=== PATIENT | male | born 1965 | race Caucasian/White ===

== ENCOUNTER 2016-08-14 12:21 | Emergency (ER) | payer MEDICAID ==
[~2016-08-14] VITALS: Ht 160 cm; Wt 56.3 kg
[~2016-08-14 12:21] MED LIST: ALBU90AE INH; CARV3.122 PO; CIPR500T3 PO; DIAZ5TAB4 PO; FLUT1BLS INH; IBUP-1222 PO; METR500T PO; MOXI400T30 PO; SIMV20TA3 PO; TIOT18CA INH; TRAM50TA2 PO; WARF5TAB PO
[2016-08-14] MEDS ORDERED: METOCLOPRAMIDE 5 MG/ML, 2ML IVPush ONE (13:30)
[2016-08-14] MEDS ORDERED: DIPHENHYDRAMINE 50 MG/ML, 1ML IVPush ONE (13:30)
[2016-08-14] MEDS ORDERED: KETOROLAC 30 MG/1 ML IVPush ONE ×2 (13:30→14:30)
[2016-08-14] MEDS ORDERED: SODIUM CHLORIDE 0.9% 1,000ML IVBOLUS ONE (13:30)
[2016-08-14] MEDS ORDERED: SODIUM CHLORIDE FLUSH 10ML SYR IVF ONE (13:30)
[2016-08-14] MEDS ORDERED: KETOROLAC 30 MG/1 ML ONE (14:06)
[2016-08-14] MEDS ORDERED: METOCLOPRAMIDE 5 MG/ML, 2ML ONE (14:06)
[2016-08-14] MEDS ORDERED: DIPHENHYDRAMINE 50 MG/ML, 1ML ONE (14:06)
[2016-08-14] MEDS ORDERED: SODIUM CHLORIDE 0.9% 1,000 ML IV ONE (14:24)
[2016-08-14] MEDS ORDERED: LORazepam 2 MG/ML, 1ML IVPush ONE (14:30)
[2016-08-14 16:23] VITALS: BP 121/80
== END 2016-08-14 16:21 | disposition home or self-care (01) ==
LOC: ED 16:14
DX: G43.909 Migraine, unspecified, not intractable, without status migrainosus (principal); I10 Essential (primary) hypertension; M54.41 Lumbago with sciatica, right side; I25.10 Atherosclerotic heart disease of native coronary artery without angina pectoris; J44.9 Chronic obstructive pulmonary disease, unspecified
CPT/HCPCS: 96361; 96374; 96375; 99284; J1200; J1885; J2765; J7030

== ENCOUNTER 2016-09-15 05:05 | Emergency (ER) | payer MEDICAID ==
[~2016-09-15] VITALS: Ht 160 cm; Wt 58.0 kg
[2016-09-15] MEDS ORDERED: DIPHENHYDRAMINE 50 MG/ML, 1ML ONE (06:22)
[2016-09-15] MEDS ORDERED: PROCHLORPERAZINE 5 MG/ML, 2ML ONE (06:23)
[2016-09-15] MEDS ORDERED: PROCHLORPERAZINE 5 MG/ML, 2ML IVPush ONE (06:30)
[2016-09-15] MEDS ORDERED: DIPHENHYDRAMINE 50 MG/ML, 1ML IVPush ONE (06:30)
[2016-09-15] MEDS ORDERED: SODIUM CHLORIDE FLUSH 10ML SYR IVF ONE (06:30)
[2016-09-15] MEDS ORDERED: SODIUM CHLORIDE 0.9% 1,000ML IVBOLUS ONE (06:30)
[2016-09-15] MEDS ORDERED: ASPI-496 PO (06:35)
[2016-09-15 06:47] LABS: BLOOD UREA NITROGEN 20 mg/dL (7-18)
[2016-09-15 07:19] LABS: DIFF TOTAL CELLS COUNTED 100 CELL DIFF
[2016-09-15 08:12] VITALS: BP 112/71
[2016-09-15 09:21] LABS: VERIFY COUNTS? YES
== END 2016-09-15 08:17 | disposition home or self-care (01) ==
LOC: ED 08:04
DX: R51 Headache (principal); G89.29 Other chronic pain; I21.3 ST elevation (STEMI) myocardial infarction of unspecified site; G43.909 Migraine, unspecified, not intractable, without status migrainosus; J44.9 Chronic obstructive pulmonary disease, unspecified; I25.10 Atherosclerotic heart disease of native coronary artery without angina pectoris; F12.10 Cannabis abuse, uncomplicated; I12.9 Hypertensive chronic kidney disease with stage 1 through stage 4 chronic kidney disease, or unspecified chronic kidney disease; N18.9 Chronic kidney disease, unspecified; M19.90 Unspecified osteoarthritis, unspecified site; Z79.01 Long term (current) use of anticoagulants; Z87.01 Personal history of pneumonia (recurrent); Z86.718 Personal history of other venous thrombosis and embolism
CPT/HCPCS: 36415; 80048; 82040; 85025; 96361; 96374; 96375; 99285; J0780; J1200; J7030

== ENCOUNTER 2016-09-15 13:45 | Emergency (ER) | payer MEDICAID ==
[~2016-09-15] VITALS: Ht 160 cm; Wt 56.2 kg
[~2016-09-15 13:45] MED LIST changes: +ASPI-496 PO
[2016-09-15] MEDS ORDERED: SODIUM CHLORIDE 0.9% 1,000ML IVBOLUS ONE (14:30)
[2016-09-15] MEDS ORDERED: SODIUM CHLORIDE FLUSH 10ML SYR IVF ONE (14:30)
[2016-09-15 15:17] LABS: BLOOD UREA NITROGEN 15 mg/dL (7-18)
[2016-09-15 15:22] LABS: IS PT STATUS REG ER OR PRE ER? YES
[2016-09-15 17:13] LABS: IS PT STATUS REG ER OR PRE ER? YES
[2016-09-15 18:17] VITALS: BP 138/96
== END 2016-09-15 18:19 | disposition home or self-care (01) ==
LOC: ED 15:27
DX: R07.89 Other chest pain (principal); M54.30 Sciatica, unspecified side; I10 Essential (primary) hypertension; J44.9 Chronic obstructive pulmonary disease, unspecified; M19.90 Unspecified osteoarthritis, unspecified site; G43.909 Migraine, unspecified, not intractable, without status migrainosus; I25.10 Atherosclerotic heart disease of native coronary artery without angina pectoris; I25.2 Old myocardial infarction; Z88.1 Allergy status to other antibiotic agents; Z88.5 Allergy status to narcotic agent
CPT/HCPCS: 36415; 71010; 80048; 82040; 84484; 85025; 85610; 85730; 93005; 96360; 99285; J7030

== ENCOUNTER 2016-09-16 14:19 | Emergency (ER) | payer MEDICAID ==
[~2016-09-16] VITALS: Ht 160 cm; Wt 58.8 kg
[2016-09-16 15:36] LABS: IS PT STATUS REG ER OR PRE ER? YES
[2016-09-16 16:31] VITALS: BP 137/81
== END 2016-09-16 16:33 | disposition home or self-care (01) ==
LOC: ED 16:00
DX: R07.89 Other chest pain (principal); I10 Essential (primary) hypertension; M19.90 Unspecified osteoarthritis, unspecified site; J44.9 Chronic obstructive pulmonary disease, unspecified; I25.10 Atherosclerotic heart disease of native coronary artery without angina pectoris; I25.2 Old myocardial infarction; Z95.5 Presence of coronary angioplasty implant and graft; Z88.1 Allergy status to other antibiotic agents; Z88.5 Allergy status to narcotic agent
CPT/HCPCS: 36415; 84484; 93005

== ENCOUNTER 2016-09-17 08:40 | Emergency (ER) | payer MEDICAID ==
[~2016-09-17] VITALS: Ht 160 cm; Wt 58.8 kg
[2016-09-17] MEDS ORDERED: ALBUTEROL/IPRATROPIUM 2.5MG/0.5MG, 3 ML ONE (10:24)
[2016-09-17] MEDS ORDERED: ALBUTEROL/IPRATROPIUM 2.5MG/0.5MG, 3 ML NPPB ONE (10:30)
[2016-09-17 11:06] VITALS: BP 118/72
== END 2016-09-17 12:00 | disposition home or self-care (01) ==
LOC: ED 09:08
DX: R06.00 Dyspnea, unspecified (principal); M25.562 Pain in left knee; J44.9 Chronic obstructive pulmonary disease, unspecified; I25.2 Old myocardial infarction; Z86.718 Personal history of other venous thrombosis and embolism; Z88.1 Allergy status to other antibiotic agents; Z88.6 Allergy status to analgesic agent
CPT/HCPCS: 71010; 93005; 94640; 99284; J7620

== ENCOUNTER 2016-10-02 13:04 | Emergency (ER) | payer MEDICAID ==
[~2016-10-02] VITALS: Ht 160 cm; Wt 57.3 kg
[2016-10-02] MEDS ORDERED: ALBUTEROL SULFATE 2.5MG/0.5ML ONE (13:57)
[2016-10-02] MEDS ORDERED: IPRATROPIUM 0.5 MG/2.5 ML INHA ONE (13:57)
[2016-10-02] MEDS ORDERED: IPRATROPIUM 0.5 MG/2.5 ML INHA NPPB ONE (14:00)
[2016-10-02] MEDS ORDERED: SODIUM CHLORIDE FLUSH 10ML SYR IVF ONE (14:00)
[2016-10-02] MEDS ORDERED: ALBUTEROL SULFATE 2.5 MG/3 ML NPPB SCH (14:00)
[2016-10-02] MEDS ORDERED: ALBUTEROL SULFATE 2.5 MG/3 ML ONE (14:07)
[2016-10-02 14:21] LABS: BLOOD UREA NITROGEN 12 mg/dL (7-18)
[2016-10-02 14:35] LABS: IS PT STATUS REG ER OR PRE ER? YES
[2016-10-02 15:48] VITALS: BP 133/94
== END 2016-10-02 15:51 | disposition home or self-care (01) ==
LOC: ED 14:11
DX: J44.1 Chronic obstructive pulmonary disease with (acute) exacerbation (principal); I10 Essential (primary) hypertension; I25.10 Atherosclerotic heart disease of native coronary artery without angina pectoris; I25.2 Old myocardial infarction; Z95.5 Presence of coronary angioplasty implant and graft
CPT/HCPCS: 36415; 71020; 80048; 82040; 83880; 84484; 85025; 93005; 94640; 99285; J7512; J7613; J7644

== ENCOUNTER 2016-10-06 20:20 | Emergency (ER) | payer MEDICAID ==
[~2016-10-06] VITALS: Ht 160 cm; Wt 58.7 kg
[2016-10-06 20:21] VITALS: BP 125/85
[2016-10-06] MEDS ORDERED: ALBUTEROL/IPRATROPIUM 2.5MG/0.5MG, 3 ML NPPB ONE (21:00)
[2016-10-06 21:58] LABS: BLOOD UREA NITROGEN 10 mg/dL (7-18)
[2016-10-06 22:03] LABS: IS PT STATUS REG ER OR PRE ER? YES
== END 2016-10-06 23:23 | disposition home or self-care (01) ==
LOC: ED 21:33
DX: J44.1 Chronic obstructive pulmonary disease with (acute) exacerbation (principal); I25.2 Old myocardial infarction; I11.9 Hypertensive heart disease without heart failure; G89.29 Other chronic pain; M54.9 Dorsalgia, unspecified; G43.909 Migraine, unspecified, not intractable, without status migrainosus; J45.909 Unspecified asthma, uncomplicated
CPT/HCPCS: 36415; 71020; 80048; 82040; 84484; 85025; 93005; 94640; 99285; J7512; J7620

== ENCOUNTER 2016-10-17 10:58 | Emergency (ER) | payer MEDICAID ==
[~2016-10-17] VITALS: Ht 160 cm; Wt 58.5 kg
[2016-10-17] MEDS ORDERED: KETOROLAC 30 MG/1 ML ONE (11:43)
[2016-10-17] MEDS ORDERED: METOCLOPRAMIDE 5 MG/ML, 2ML ONE (11:43)
[2016-10-17] MEDS ORDERED: DIPHENHYDRAMINE 50 MG/ML, 1ML ONE (11:43)
[2016-10-17 11:57] VITALS: BP 119/90
[2016-10-17] MEDS ORDERED: SODIUM CHLORIDE 0.9% 1,000ML IVBOLUS ONE (12:00)
[2016-10-17] MEDS ORDERED: METOCLOPRAMIDE 5 MG/ML, 2ML IVPush ONE (12:00)
[2016-10-17] MEDS ORDERED: KETOROLAC 30 MG/1 ML IVPush ONE (12:00)
[2016-10-17] MEDS ORDERED: SODIUM CHLORIDE FLUSH 10ML SYR IVF ONE (12:00)
[2016-10-17] MEDS ORDERED: DIPHENHYDRAMINE 50 MG/ML, 1ML IVPush ONE (12:00)
== END 2016-10-17 14:22 | disposition home or self-care (01) ==
LOC: ED 13:06
DX: G43.909 Migraine, unspecified, not intractable, without status migrainosus (principal); F17.200 Nicotine dependence, unspecified, uncomplicated; J44.9 Chronic obstructive pulmonary disease, unspecified; I10 Essential (primary) hypertension; I25.10 Atherosclerotic heart disease of native coronary artery without angina pectoris; Z88.0 Allergy status to penicillin; Z88.5 Allergy status to narcotic agent
CPT/HCPCS: 96361; 96374; 96375; 99284; J1200; J1885; J2765; J7030

== ENCOUNTER 2016-10-30 11:43 | Emergency (ER) | payer MEDICAID ==
[~2016-10-30] VITALS: Ht 160 cm; Wt 58.6 kg
[2016-10-30 11:45] VITALS: BP 118/80
== END 2016-10-30 13:17 | disposition home or self-care (01) ==
LOC: ED 13:00
DX: Z43.2 Encounter for attention to ileostomy (principal); Z93.2 Ileostomy status
CPT/HCPCS: 99281

== ENCOUNTER 2016-11-18 02:23 | Emergency (ER) | payer MEDICAID ==
[~2016-11-18] VITALS: Ht 160 cm; Wt 58.7 kg
[2016-11-18] MEDS ORDERED: NITROGLYCERIN OINT 2%, 1GM TP ONE ×2 (03:00→03:18)
[2016-11-18] MEDS ORDERED: SODIUM CHLORIDE 0.9% 1,000ML IVBOLUS ONE (03:00)
[2016-11-18] MEDS ORDERED: ASPIRIN 81 MG TABLET CHEW PO ONE (03:00)
[2016-11-18] MEDS ORDERED: ONDANSETRON 2MG/ML, 2ML IVPush ONE (03:00)
[2016-11-18] MEDS ORDERED: SODIUM CHLORIDE FLUSH 10ML SYR IVF ONE (03:00)
[2016-11-18] MEDS ORDERED: MORPHINE SULFATE 4 MG/ML, 1ML ONE ×2 (03:18→04:02)
[2016-11-18] MEDS ORDERED: ASPIRIN 81 MG TABLET CHEW ONE (03:19)
[2016-11-18] MEDS ORDERED: ONDANSETRON 2MG/ML, 2ML ONE (03:19)
[2016-11-18 03:29] LABS: ASPARTATE AMINO TRANSFERASE 12 U/L (15-37); BLOOD UREA NITROGEN 13 mg/dL (7-18)
[2016-11-18 03:34] LABS: IS PT STATUS REG ER OR PRE ER? YES
[2016-11-18] MEDS: MORPHINE SULFATE 4 MG/ML, 1ML IVPush PRN ×2 (03:37→04:05)
[2016-11-18 03:54] LABS: DAU SCREEN DISCLAIMER
[2016-11-18] MEDS ORDERED: CARV3.1212 PO (04:10)
[2016-11-18 08:46] VITALS: BP 128/84
== END 2016-11-18 08:48 | disposition home or self-care (01) ==
LOC: ED 03:06
DX: R07.2 Precordial pain (principal); R00.0 Tachycardia, unspecified; D72.829 Elevated white blood cell count, unspecified; Z72.9 Problem related to lifestyle, unspecified; F17.200 Nicotine dependence, unspecified, uncomplicated; I10 Essential (primary) hypertension; I25.10 Atherosclerotic heart disease of native coronary artery without angina pectoris; J44.9 Chronic obstructive pulmonary disease, unspecified; G43.909 Migraine, unspecified, not intractable, without status migrainosus; I25.2 Old myocardial infarction; J43.9 Emphysema, unspecified; Z88.0 Allergy status to penicillin; Z95.5 Presence of coronary angioplasty implant and graft; Z88.5 Allergy status to narcotic agent; Z88.1 Allergy status to other antibiotic agents
CPT/HCPCS: 36415; 71010; 80053; 80307; 84436; 84443; 84484; 85025; 85379; 85610; 85730; 93005; 96361; 96374; 96375; 99285; J2405; J7030

== ENCOUNTER 2016-11-18 21:30 | Emergency (ER) | payer MEDICAID ==
[~2016-11-18] VITALS: Ht 160 cm; Wt 59.0 kg
[~2016-11-18 21:30] MED LIST changes: +CARV3.1212 PO
[2016-11-18 22:24] VITALS: BP 129/87
== END 2016-11-18 22:42 | disposition home or self-care (01) ==
LOC: ED 21:45
DX: S06.9X1A Unspecified intracranial injury with loss of consciousness of 30 minutes or less, initial encounter (principal); I10 Essential (primary) hypertension; I25.10 Atherosclerotic heart disease of native coronary artery without angina pectoris; J44.9 Chronic obstructive pulmonary disease, unspecified; G43.909 Migraine, unspecified, not intractable, without status migrainosus; I25.2 Old myocardial infarction; Z95.5 Presence of coronary angioplasty implant and graft; F12.10 Cannabis abuse, uncomplicated; Z79.82 Long term (current) use of aspirin; X58.XXXA Exposure to other specified factors, initial encounter; Y93.89 Activity, other specified; Y99.8 Other external cause status; Y92.410 Unspecified street and highway as the place of occurrence of the external cause
CPT/HCPCS: 70450; 72125; 99284

== ENCOUNTER 2016-11-22 02:56 | Emergency (ER) | payer MEDICAID ==
[~2016-11-22] VITALS: Ht 160 cm; Wt 59.5 kg
[2016-11-22] MEDS ORDERED: HYDROcodone/APAP 5/325 TABLET ONE (03:27)
[2016-11-22] MEDS ORDERED: HYDROcodone/APAP 5/325 TABLET PO ONE (03:30)
[2016-11-22] MEDS ORDERED: CLOP75TA22 PO (07:26)
[2016-11-22] MEDS ORDERED: ATOR20TA9 PO (07:26)
[2016-11-22 08:11] VITALS: BP 123/88
== END 2016-11-22 08:15 | disposition home or self-care (01) ==
LOC: ED 03:40
DX: T82.897A Other specified complication of cardiac prosthetic devices, implants and grafts, initial encounter (principal); M79.662 Pain in left lower leg; I10 Essential (primary) hypertension; I25.10 Atherosclerotic heart disease of native coronary artery without angina pectoris; M19.90 Unspecified osteoarthritis, unspecified site; J44.9 Chronic obstructive pulmonary disease, unspecified; G43.909 Migraine, unspecified, not intractable, without status migrainosus; I25.2 Old myocardial infarction; Z87.01 Personal history of pneumonia (recurrent); M54.30 Sciatica, unspecified side; Z95.5 Presence of coronary angioplasty implant and graft; F12.10 Cannabis abuse, uncomplicated
CPT/HCPCS: 93926; 99284

== ENCOUNTER 2016-11-23 05:13 | Emergency (ER) | payer MEDICAID ==
[~2016-11-23] VITALS: Ht 160 cm; Wt 60.3 kg
[~2016-11-23 05:13] MED LIST changes: +ATOR20TA9 PO; +CLOP75TA22 PO
[2016-11-23 05:17] VITALS: BP 11/80
[2016-11-23] MEDS ORDERED: METOCLOPRAMIDE 10MG TABLET PO ONE (06:00)
[2016-11-23] MEDS ORDERED: DIPHENHYDRAMINE 25 MG CAPSULE PO ONE (06:00)
[2016-11-23] MEDS ORDERED: DIPHENHYDRAMINE 25 MG CAPSULE ONE (06:01)
== END 2016-11-23 06:27 | disposition home or self-care (01) ==
LOC: ED 05:34
DX: G43.009 Migraine without aura, not intractable, without status migrainosus (principal); Z88.1 Allergy status to other antibiotic agents; Z88.2 Allergy status to sulfonamides; Z88.5 Allergy status to narcotic agent; Z91.048 Other nonmedicinal substance allergy status
CPT/HCPCS: 70450; 99284

== ENCOUNTER 2016-11-27 19:39 | Inpatient (IN) | payer MEDICAID ==
[~2016-11-27] VITALS: Ht 160 cm; Wt 59.6 kg
[2016-11-27] MEDS ORDERED: ATOR20TA PO (20:07)
[2016-11-27] MEDS ORDERED: ASPIRIN 81 MG TABLET CHEW ONE (20:13)
[2016-11-27 20:20] LABS: HEMATOCRIT 48.2 % (39.2-51.8); HEMOGLOBIN 16.3 g/dL (13.7-18.0); WHITE BLOOD COUNT 19.5 x10^3/uL (3.4-10)
[2016-11-27 20:28] LABS: BLOOD UREA NITROGEN 9 mg/dL (7-18)
[2016-11-27] MEDS ORDERED: ASPIRIN 81 MG TABLET CHEW PO ONE (20:30)
[2016-11-27 20:38] LABS: IS PT STATUS REG ER OR PRE ER? YES
[2016-11-27] MEDS ORDERED: SODIUM CHLORIDE FLUSH 10ML SYR IVF ONE (21:00)
[2016-11-27] MEDS ORDERED: OMNIPAQUE 350 MG/ML, 100ML BOTTLE ONE (21:38)
[2016-11-27] MEDS ORDERED: TEMAZEPAM 15 MG CAPSULE PO PRN (22:00)
[2016-11-27] MEDS ORDERED: ENOXAPARIN 60 MG/0.6 ML SQ SCH (22:00)
[2016-11-27] MEDS ORDERED: ENOXAPARIN 40 MG/0.4 ML SQ SCH ×2 (22:00)
[2016-11-27 22:45] VITALS: BP 129/99
[2016-11-27] MEDS: NS + 20MEQ KCL 1,000 ML IV SCH (23:58)
[2016-11-28] MEDS: ENOXAPARIN 60 MG/0.6 ML SQ SCH ×3 (00:03→21:35)
[2016-11-28 05:27] LABS: HEMATOCRIT 45.9 % (39.2-51.8); HEMOGLOBIN 15.1 g/dL (13.7-18.0); WHITE BLOOD COUNT 13.2 x10^3/uL (3.4-10)
[2016-11-28 05:43] VITALS: BP 117/90
[2016-11-28 05:43] LABS: ASPARTATE AMINO TRANSFERASE 13 U/L (15-37); BLOOD UREA NITROGEN 7 mg/dL (7-18)
[2016-11-28 08:22] VITALS: BP 108/82
[2016-11-28] MEDS: NS + 20MEQ KCL 1,000 ML IV SCH ×2 (08:50→20:05)
[2016-11-28] MEDS: CLOPIDOGREL 75 MG TABLET PO SCH (10:49)
[2016-11-28] MEDS: ASPIRIN 81 MG TABLET EC PO SCH (10:49)
[2016-11-28] MEDS: CARVEDILOL 3.125 MG TABLET PO SCH ×2 (10:49→21:34)
[2016-11-28 13:56] VITALS: BP 118/76
[2016-11-28] MEDS: WARFARIN MODERAT DOSE PROTOCOL XX SCH (15:33)
[2016-11-28] MEDS ORDERED: WARFARIN 7.5 MG TABLET PO-COUM ONE (18:00)
[2016-11-28 18:45] VITALS: BP 113/75
[2016-11-28] MEDS: ATORVASTATIN 20 MG TABLET PO SCH (21:34)
[2016-11-29 03:08] VITALS: BP 138/90
[2016-11-29] MEDS: NS + 20MEQ KCL 1,000 ML IV SCH ×2 (04:36→14:19)
[2016-11-29 05:53] LABS: HEMATOCRIT 43.3 % (39.2-51.8); HEMOGLOBIN 14.5 g/dL (13.7-18.0); WHITE BLOOD COUNT 13.1 x10^3/uL (3.4-10)
[2016-11-29 06:00] LABS: BLOOD UREA NITROGEN 6 mg/dL (7-18)
[2016-11-29 07:26] VITALS: BP 121/76
[2016-11-29] MEDS: CARVEDILOL 3.125 MG TABLET PO SCH ×2 (09:56→21:19)
[2016-11-29] MEDS: ENOXAPARIN 60 MG/0.6 ML SQ SCH ×2 (09:56→21:19)
[2016-11-29] MEDS: ASPIRIN 81 MG TABLET EC PO SCH (09:56)
[2016-11-29] MEDS: CLOPIDOGREL 75 MG TABLET PO SCH (09:56)
[2016-11-29] MEDS: WARFARIN MODERAT DOSE PROTOCOL XX SCH (12:00)
[2016-11-29 13:29] VITALS: BP 125/81
[2016-11-29] MEDS ORDERED: WARFARIN 7.5 MG TABLET PO-COUM ONE (18:00)
[2016-11-29 21:16] VITALS: BP 124/79
[2016-11-29] MEDS: ATORVASTATIN 20 MG TABLET PO SCH (21:19)
[2016-11-30 02:13] VITALS: BP 109/74
[2016-11-30 08:42] VITALS: BP 122/80
[2016-11-30] MEDS: CARVEDILOL 3.125 MG TABLET PO SCH ×2 (08:45→21:35)
[2016-11-30] MEDS: ENOXAPARIN 60 MG/0.6 ML SQ SCH ×2 (08:45→21:35)
[2016-11-30] MEDS: CLOPIDOGREL 75 MG TABLET PO SCH (08:45)
[2016-11-30] MEDS: ASPIRIN 81 MG TABLET EC PO SCH (08:45)
[2016-11-30] MEDS: WARFARIN MODERAT DOSE PROTOCOL XX SCH (12:00)
[2016-11-30] MEDS: ACETAMINOPHEN 325 MG TABLET PO PRN ×2 (13:03→21:49)
[2016-11-30 15:59] VITALS: BP 147/90
[2016-11-30] MEDS ORDERED: WARFARIN 5 MG TABLET PO-COUM SCH (18:00)
[2016-11-30 19:50] VITALS: BP 125/80
[2016-11-30] MEDS: ATORVASTATIN 20 MG TABLET PO SCH (21:35)
[2016-12-01 00:39] VITALS: BP 134/85
[2016-12-01 06:22] LABS: HEMATOCRIT 45.1 % (39.2-51.8); HEMOGLOBIN 15.1 g/dL (13.7-18.0); WHITE BLOOD COUNT 11.6 x10^3/uL (3.4-10)
[2016-12-01] MEDS: ASPIRIN 81 MG TABLET EC PO SCH (08:49)
[2016-12-01] MEDS: CLOPIDOGREL 75 MG TABLET PO SCH (08:49)
[2016-12-01] MEDS: CARVEDILOL 3.125 MG TABLET PO SCH ×2 (08:49→21:34)
[2016-12-01] MEDS: ENOXAPARIN 60 MG/0.6 ML SQ SCH ×2 (08:49→21:34)
[2016-12-01 09:58] VITALS: BP 143/92
[2016-12-01] MEDS: WARFARIN MODERAT DOSE PROTOCOL XX SCH (11:57)
[2016-12-01] MEDS: ACETAMINOPHEN 325 MG TABLET PO PRN (12:00)
[2016-12-01 15:52] VITALS: BP 126/88
[2016-12-01] MEDS ORDERED: WARFARIN 5 MG TABLET PO-COUM SCH (18:00)
[2016-12-01 19:18] VITALS: BP 126/87
[2016-12-01] MEDS: ATORVASTATIN 20 MG TABLET PO SCH (21:33)
[2016-12-02 00:48] VITALS: BP 122/75
[2016-12-02 08:20] VITALS: BP 122/83
[2016-12-02] MEDS: CLOPIDOGREL 75 MG TABLET PO SCH (08:24)
[2016-12-02] MEDS: ASPIRIN 81 MG TABLET EC PO SCH (08:24)
[2016-12-02] MEDS: ENOXAPARIN 60 MG/0.6 ML SQ SCH ×2 (08:24→22:35)
[2016-12-02] MEDS: CARVEDILOL 3.125 MG TABLET PO SCH ×2 (08:24→22:35)
[2016-12-02] MEDS: WARFARIN MODERAT DOSE PROTOCOL XX SCH (12:00)
[2016-12-02 14:20] VITALS: BP 108/76
[2016-12-02] MEDS: ACETAMINOPHEN 325 MG TABLET PO PRN (15:20)
[2016-12-02] MEDS ORDERED: WARFARIN 5 MG TABLET PO-COUM SCH (18:00)
[2016-12-02 20:20] VITALS: BP 120/80
[2016-12-02] MEDS: ATORVASTATIN 20 MG TABLET PO SCH (22:35)
[2016-12-03 02:00] VITALS: BP 104/73
[2016-12-03 08:59] VITALS: BP 107/73
[2016-12-03] MEDS: CLOPIDOGREL 75 MG TABLET PO SCH (09:30)
[2016-12-03] MEDS: CARVEDILOL 3.125 MG TABLET PO SCH (09:30)
[2016-12-03] MEDS: ENOXAPARIN 60 MG/0.6 ML SQ SCH (09:30)
[2016-12-03] MEDS: ASPIRIN 81 MG TABLET EC PO SCH (09:30)
[2016-12-03] MEDS: WARFARIN MODERAT DOSE PROTOCOL XX SCH (10:11)
[2016-12-03] MEDS: ACETAMINOPHEN 325 MG TABLET PO PRN ×2 (12:17→16:05)
[2016-12-03] MEDS ORDERED: WARF3TAB PO-COUM (16:28)
[2016-12-03] MEDS ORDERED: ASPI-621 PO (16:44)
[2016-12-03 17:11] VITALS: BP 137/93
[2016-12-03] MEDS ORDERED: WARFARIN 3 MG TABLET PO-COUM SCH (18:00)
== END 2016-12-03 17:30 | disposition home or self-care (01) | DRG 176 ==
LOC: ED 20:28 → EDIP 21:41 → 4NOR 23:26
PROVIDERS: ADMIT Internal Medicine; ATTEND Internal Medicine
DX: I26.99 Other pulmonary embolism without acute cor pulmonale (principal); E44.1 Mild protein-calorie malnutrition; D68.59 Other primary thrombophilia; I25.10 Atherosclerotic heart disease of native coronary artery without angina pectoris; J44.9 Chronic obstructive pulmonary disease, unspecified; G43.909 Migraine, unspecified, not intractable, without status migrainosus; I10 Essential (primary) hypertension; D72.829 Elevated white blood cell count, unspecified; M19.90 Unspecified osteoarthritis, unspecified site; Z79.01 Long term (current) use of anticoagulants; Z86.718 Personal history of other venous thrombosis and embolism; Z95.5 Presence of coronary angioplasty implant and graft; Z87.01 Personal history of pneumonia (recurrent); Z90.49 Acquired absence of other specified parts of digestive tract; Z83.3 Family history of diabetes mellitus; Z88.1 Allergy status to other antibiotic agents; Z88.5 Allergy status to narcotic agent; Z88.8 Allergy status to other drugs, medicaments and biological substances; Z93.2 Ileostomy status; Z68.23 Body mass index [BMI] 23.0-23.9, adult
CPT/HCPCS: 36415; 71010; 71275; 80048; 80053; 82040; 83735; 84484; 85025; 85379; 85610; 93005; 93306; 93970; 99285; J1650; J3480; Q9967

== ENCOUNTER 2016-12-12 21:07 | Emergency (ER) | payer MEDICAID ==
[~2016-12-12] VITALS: Ht 160 cm; Wt 59.6 kg
[~2016-12-12 21:07] MED LIST changes: +ASPI-621 PO; +ATOR20TA PO; -CLOP75TA22 PO; +CLOP75TA52 PO; +WARF3TAB PO-COUM
[2016-12-12] MEDS ORDERED: ALBUTEROL/IPRATROPIUM 2.5MG/0.5MG, 3 ML ONE (21:46)
[2016-12-12 21:56] LABS: HEMATOCRIT 48.6 % (39.2-51.8); HEMOGLOBIN 16.3 g/dL (13.7-18.0); WHITE BLOOD COUNT 19.4 x10^3/uL (3.4-10)
[2016-12-12] MEDS ORDERED: SODIUM CHLORIDE 0.9% 1,000ML IVBOLUS ONE (22:00)
[2016-12-12] MEDS ORDERED: ALBUTEROL/IPRATROPIUM 2.5MG/0.5MG, 3 ML NPPB ONE (22:00)
[2016-12-12] MEDS ORDERED: SODIUM CHLORIDE FLUSH 10ML SYR IVF ONE (22:00)
[2016-12-12 22:08] LABS: BLOOD UREA NITROGEN 20 mg/dL (7-18)
[2016-12-12 22:12] LABS: IS PT STATUS REG ER OR PRE ER? YES
[2016-12-12] MEDS ORDERED: ENOXAPARIN 60 MG/0.6 ML ONE (23:00)
[2016-12-12] MEDS ORDERED: ENOXAPARIN 60 MG/0.6 ML SQ SCH (23:00)
[2016-12-12 23:11] VITALS: BP 123/83
== END 2016-12-12 23:46 | disposition home or self-care (01) ==
LOC: ED 23:12
DX: R07.2 Precordial pain (principal); J44.9 Chronic obstructive pulmonary disease, unspecified; Z72.9 Problem related to lifestyle, unspecified; F17.200 Nicotine dependence, unspecified, uncomplicated
CPT/HCPCS: 36415; 71010; 80048; 82040; 83880; 84484; 85025; 85610; 85730; 93005; 94640; 96372; 99285; 99406; J1650; J7030; J7512; J7620

== ENCOUNTER 2016-12-14 22:02 | Emergency (ER) | payer MEDICAID ==
[~2016-12-14] VITALS: Ht 160 cm; Wt 55.6 kg
[2016-12-14] MEDS ORDERED: ASPIRIN 81 MG TABLET CHEW ONE (22:45)
[2016-12-14] MEDS ORDERED: ASPIRIN 81 MG TABLET CHEW PO ONE (23:00)
[2016-12-14] MEDS ORDERED: SODIUM CHLORIDE FLUSH 10ML SYR IVF ONE (23:00)
[2016-12-14 23:23] LABS: HEMATOCRIT 44.9 % (39.2-51.8); WHITE BLOOD COUNT 17.4 x10^3/uL (3.4-10)
[2016-12-14 23:35] LABS: ASPARTATE AMINO TRANSFERASE 15 U/L (15-37); BLOOD UREA NITROGEN 16 mg/dL (7-18)
[2016-12-14 23:41] LABS: IS PT STATUS REG ER OR PRE ER? YES
[2016-12-15] MEDS ORDERED: ENOXAPARIN 60 MG/0.6 ML SQ ONE
[2016-12-15] MEDS ORDERED: ENOXAPARIN 60 MG/0.6 ML ONE (00:15)
[2016-12-15 00:18] VITALS: BP 114/77
== END 2016-12-15 00:41 | disposition home or self-care (01) ==
LOC: ED 22:26
DX: R07.89 Other chest pain (principal); D72.829 Elevated white blood cell count, unspecified; Z72.9 Problem related to lifestyle, unspecified; F17.200 Nicotine dependence, unspecified, uncomplicated; F19.10 Other psychoactive substance abuse, uncomplicated; J44.9 Chronic obstructive pulmonary disease, unspecified; Z86.718 Personal history of other venous thrombosis and embolism; I25.2 Old myocardial infarction; I10 Essential (primary) hypertension; I25.10 Atherosclerotic heart disease of native coronary artery without angina pectoris
CPT/HCPCS: 36415; 71020; 80053; 84484; 85025; 85610; 85730; 93005; 96372; 99285; J1650

== ENCOUNTER 2016-12-22 21:54 | Emergency (ER) | payer MEDICAID ==
[~2016-12-22] VITALS: Ht 160 cm; Wt 59.1 kg
[2016-12-22] MEDS ORDERED: SODIUM CHLORIDE 0.9% 1,000 ML IV ONE (22:26)
[2016-12-22] MEDS ORDERED: SODIUM CHLORIDE FLUSH 10ML SYR IVF ONE (22:30)
[2016-12-22] MEDS ORDERED: ALBUTEROL/IPRATROPIUM 2.5MG/0.5MG, 3 ML ONE (22:42)
[2016-12-22 22:45] LABS: WHITE BLOOD COUNT 23.8 x10^3/uL (3.4-10)
[2016-12-22 22:55] LABS: BLOOD UREA NITROGEN 16 mg/dL (7-18)
[2016-12-22] MEDS ORDERED: SODIUM CHLORIDE 0.9% 1,000ML IVBOLUS ONE (23:00)
[2016-12-22] MEDS ORDERED: ALBUTEROL/IPRATROPIUM 2.5MG/0.5MG, 3 ML NPPB ONE (23:00)
[2016-12-22 23:09] LABS: IS PT STATUS REG ER OR PRE ER? YES
[2016-12-23] MEDS ORDERED: ENOXAPARIN 60 MG/0.6 ML SQ ONE
[2016-12-23] MEDS ORDERED: ENOXAPARIN 60 MG/0.6 ML ONE (00:19)
[2016-12-23 00:56] VITALS: BP 118/89
== END 2016-12-23 01:06 | disposition home or self-care (01) ==
LOC: ED 23:29
DX: J44.1 Chronic obstructive pulmonary disease with (acute) exacerbation (principal); R06.00 Dyspnea, unspecified; I10 Essential (primary) hypertension; I25.10 Atherosclerotic heart disease of native coronary artery without angina pectoris; J45.909 Unspecified asthma, uncomplicated; Z95.5 Presence of coronary angioplasty implant and graft; Z79.01 Long term (current) use of anticoagulants; F17.200 Nicotine dependence, unspecified, uncomplicated
CPT/HCPCS: 36415; 71010; 80048; 82040; 83605; 83880; 84484; 85025; 85610; 85730; 87040; 93005; 94640; 96360; 96372; 99285; J1650; J7030; J7620

== ENCOUNTER 2016-12-28 00:03 | Emergency (ER) | payer MEDICAID ==
[~2016-12-28] VITALS: Ht 160 cm; Wt 60.1 kg
[2016-12-28] MEDS ORDERED: PRED10TA14 PO (01:18)
[2016-12-28] MEDS ORDERED: SODIUM CHLORIDE 0.9% 1,000ML IVBOLUS ONE (01:30)
[2016-12-28] MEDS ORDERED: DIPHENHYDRAMINE 50 MG/ML, 1ML IVPush ONE (01:30)
[2016-12-28] MEDS ORDERED: KETOROLAC 30 MG/1 ML IVPush ONE (01:30)
[2016-12-28] MEDS ORDERED: SODIUM CHLORIDE FLUSH 10ML SYR IVF ONE (01:30)
[2016-12-28] MEDS ORDERED: METOCLOPRAMIDE 5 MG/ML, 2ML IVPush ONE (01:30)
[2016-12-28] MEDS ORDERED: METOCLOPRAMIDE 5 MG/ML, 2ML ONE (01:47)
[2016-12-28] MEDS ORDERED: KETOROLAC 30 MG/1 ML ONE (01:47)
[2016-12-28] MEDS ORDERED: DIPHENHYDRAMINE 50 MG/ML, 1ML ONE (01:47)
[2016-12-28 02:46] VITALS: BP 112/75
== END 2016-12-28 02:58 | disposition home or self-care (01) ==
LOC: ED 01:25
DX: G43.009 Migraine without aura, not intractable, without status migrainosus (principal); B35.6 Tinea cruris; J44.9 Chronic obstructive pulmonary disease, unspecified
CPT/HCPCS: 96361; 96374; 96375; 99284; J1200; J1885; J2765; J7030

== ENCOUNTER 2016-12-29 22:53 | Emergency (ER) | payer MEDICAID ==
[~2016-12-29] VITALS: Ht 160 cm; Wt 60.8 kg
[~2016-12-29 22:53] MED LIST changes: +PRED10TA14 PO
[2016-12-29] MEDS ORDERED: ASPIRIN 81 MG TABLET CHEW ONE (23:48)
[2016-12-29] MEDS ORDERED: ALBUTEROL/IPRATROPIUM 2.5MG/0.5MG, 3 ML ONE (23:59)
[2016-12-30] MEDS ORDERED: ALBUTEROL/IPRATROPIUM 2.5MG/0.5MG, 3 ML NPPB ONE
[2016-12-30] MEDS ORDERED: SODIUM CHLORIDE FLUSH 10ML SYR IVF ONE
[2016-12-30] MEDS ORDERED: ASPIRIN 81 MG TABLET CHEW PO ONE
[2016-12-30 00:04] LABS: HEMATOCRIT 49.2 % (39.2-51.8); HEMOGLOBIN 16.8 g/dL (13.7-18.0); WHITE BLOOD COUNT 19.6 x10^3/uL (3.4-10)
[2016-12-30 00:10] LABS: BLOOD UREA NITROGEN 21 mg/dL (7-18)
[2016-12-30 00:17] LABS: IS PT STATUS REG ER OR PRE ER? YES
[2016-12-30] MEDS ORDERED: SODIUM CHLORIDE 0.9%, 500ML IVBOLUS ONE (01:30)
[2016-12-30] MEDS ORDERED: ENOXAPARIN 60 MG/0.6 ML SQ ONE (01:30)
[2016-12-30] MEDS ORDERED: OMNIPAQUE 350 MG/ML, 100ML BOTTLE ONE (01:56)
[2016-12-30 03:36] LABS: IS PT STATUS REG ER OR PRE ER? NO
[2016-12-30 04:00] VITALS: BP 134/81
== END 2016-12-30 04:04 | disposition home or self-care (01) ==
LOC: ED 12-30 00:53
DX: J44.1 Chronic obstructive pulmonary disease with (acute) exacerbation (principal); R07.2 Precordial pain; G43.909 Migraine, unspecified, not intractable, without status migrainosus; I10 Essential (primary) hypertension; I25.810 Atherosclerosis of coronary artery bypass graft(s) without angina pectoris; Z79.82 Long term (current) use of aspirin; Z86.718 Personal history of other venous thrombosis and embolism; Z86.711 Personal history of pulmonary embolism; Z95.5 Presence of coronary angioplasty implant and graft; Z88.1 Allergy status to other antibiotic agents; Z88.0 Allergy status to penicillin; Z88.8 Allergy status to other drugs, medicaments and biological substances; F17.200 Nicotine dependence, unspecified, uncomplicated
CPT/HCPCS: 36415; 71010; 71275; 80048; 82040; 84484; 85025; 85610; 85730; 93005; 94640; 96360; 99285; J7040; Q9967; J7620

== ENCOUNTER 2016-12-30 22:15 | Emergency (ER) | payer MEDICAID ==
[~2016-12-30] VITALS: Ht 160 cm; Wt 61.6 kg
[2016-12-30] MEDS ORDERED: ALBUTEROL/IPRATROPIUM 2.5MG/0.5MG, 3 ML NPPB ONE (23:00)
[2016-12-30] MEDS ORDERED: ACETAMINOPHEN 325 MG TABLET PO ONE (23:00)
[2016-12-30] MEDS ORDERED: ACETAMINOPHEN 325 MG TABLET ONE (23:16)
[2016-12-30 23:44] VITALS: BP 122/64
== END 2016-12-30 23:46 | disposition home or self-care (01) ==
LOC: ED 22:36
DX: J44.1 Chronic obstructive pulmonary disease with (acute) exacerbation (principal); I10 Essential (primary) hypertension; I25.10 Atherosclerotic heart disease of native coronary artery without angina pectoris; Z86.711 Personal history of pulmonary embolism; Z95.5 Presence of coronary angioplasty implant and graft
CPT/HCPCS: 93005; 94640; 99283; J7512; J7620

== ENCOUNTER 2017-01-03 16:57 | Inpatient (IN) | payer MEDICAID ==
[~2017-01-03] VITALS: Ht 160 cm; Wt 51.1 kg
[2017-01-03] MEDS ORDERED: NITROGLYCERIN SINGLE TAB 0.4 MG SL PRN (17:30)
[2017-01-03] MEDS ORDERED: ASPIRIN 81 MG TABLET CHEW PO ONE (17:30)
[2017-01-03] MEDS ORDERED: NITROGLYCERIN SINGLE TAB 0.4 MG SL ONE (17:40)
[2017-01-03] MEDS ORDERED: ASPIRIN 81 MG TABLET CHEW ONE (17:41)
[2017-01-03 18:05] LABS: BLOOD UREA NITROGEN 7 mg/dL (7-18)
[2017-01-03 18:09] LABS: IS PT STATUS REG ER OR PRE ER? YES
[2017-01-03 18:14] LABS: HEMATOCRIT 48.7 % (39.2-51.8); HEMOGLOBIN 16.6 g/dL (13.7-18.0); WHITE BLOOD COUNT 14.7 x10^3/uL (3.4-10)
[2017-01-03] MEDS ORDERED: OMNIPAQUE 350 MG/ML, 100ML BOTTLE ONE (21:06)
[2017-01-03] MEDS ORDERED: ENALAPRILAT 1.25 MG/ML, 2ML IVPush PRN (22:30)
[2017-01-03] MEDS ORDERED: LABETALOL 5MG/ML, 20ML IVPush PRN (22:30)
[2017-01-03] MEDS ORDERED: DOCUSATE 100 MG CAPSULE PO PRN (22:30)
[2017-01-03] MEDS ORDERED: ENOXAPARIN 40 MG/0.4 ML SQ SCH (22:30)
[2017-01-03] MEDS ORDERED: NITROGLYCERIN 0.4 MG BOTTLE (25 TABS) SL PRN (22:30)
[2017-01-03] MEDS ORDERED: ONDANSETRON ODT 4 MG PO PRN (22:30)
[2017-01-03] MEDS ORDERED: ACETAMINOPHEN 325 MG TABLET PO PRN (22:30)
[2017-01-03] MEDS ORDERED: GUAIFENESIN/DM 200-20MG, 10ML UDC PO PRN (22:30)
[2017-01-03] MEDS ORDERED: WARFARIN MODERAT DOSE PROTOCOL XX PRN (22:30)
[2017-01-03 22:54] LABS: IS PT STATUS REG ER OR PRE ER? YES
[2017-01-03] MEDS ORDERED: methylPREDNISolone SOD SUCC 40 MG/ML ONE (23:01)
[2017-01-03] MEDS ORDERED: ENOXAPARIN 40 MG/0.4 ML ONE (23:02)
[2017-01-03] MEDS ORDERED: AZITHROMYCIN 250 MG TABLET ONE (23:23)
[2017-01-03] MEDS: methylPREDNISolone SOD SUCC 40 MG/ML IV SCH (23:26)
[2017-01-03] MEDS: CARVEDILOL 3.125 MG TABLET PO SCH (23:27)
[2017-01-03] MEDS: AZITHROMYCIN 500 MG TABLET PO SCH (23:27)
[2017-01-03] MEDS: ATORVASTATIN 20 MG TABLET PO SCH (23:27)
[2017-01-04 04:23] LABS: HEMATOCRIT 47.3 % (39.2-51.8); HEMOGLOBIN 15.8 g/dL (13.7-18.0); WHITE BLOOD COUNT 16.2 x10^3/uL (3.4-10)
[2017-01-04 04:35] LABS: BLOOD UREA NITROGEN 10 mg/dL (7-18)
[2017-01-04 04:41] LABS: ASPARTATE AMINO TRANSFERASE 21 U/L (15-37); IS PT STATUS REG ER OR PRE ER? YES
[2017-01-04] MEDS: AZITHROMYCIN 500 MG TABLET PO SCH (09:00)
[2017-01-04] MEDS: CARVEDILOL 3.125 MG TABLET PO SCH ×2 (09:00→23:47)
[2017-01-04] MEDS: CLOPIDOGREL 75 MG TABLET PO SCH (09:00)
[2017-01-04] MEDS: ASPIRIN 81 MG TABLET EC PO SCH (09:00)
[2017-01-04] MEDS ORDERED: AZITHROMYCIN 250 MG TABLET ONE (09:06)
[2017-01-04] MEDS ORDERED: ASPIRIN 81 MG TABLET CHEW ONE (09:06)
[2017-01-04 10:21] VITALS: BP 143/91
[2017-01-04] MEDS: methylPREDNISolone SOD SUCC 40 MG/ML IV SCH ×2 (12:11→23:47)
[2017-01-04] MEDS: ENOXAPARIN 60 MG/0.6 ML SQ SCH ×2 (12:12→23:47)
[2017-01-04 12:13] VITALS: BP 103/73
[2017-01-04] MEDS ORDERED: ALBUTEROL/IPRATROPIUM 2.5MG/0.5MG, 3 ML ONE ×2 (15:35→18:42)
[2017-01-04] MEDS ORDERED: WARFARIN 3 MG TABLET PO-COUM SCH (18:00)
[2017-01-04] MEDS: ALBUTEROL/IPRATROPIUM 2.5MG/0.5MG, 3 ML NPPB SCH (19:20)
[2017-01-04 19:46] VITALS: BP 116/82
[2017-01-04] MEDS: GUAIFENESIN 200 MG TABLET PO SCH (20:59)
[2017-01-04] MEDS: BENZONATATE 100 MG CAPSULE PO SCH (20:59)
[2017-01-04] MEDS: TEMAZEPAM 15 MG CAPSULE PO PRN (21:00)
[2017-01-04] MEDS: ATORVASTATIN 20 MG TABLET PO SCH (23:47)
[2017-01-05 03:33] VITALS: BP 119/82
[2017-01-05] MEDS: GUAIFENESIN 200 MG TABLET PO SCH ×4 (05:16→20:14)
[2017-01-05 06:07] LABS: HEMATOCRIT 44.4 % (39.2-51.8); HEMOGLOBIN 15.1 g/dL (13.7-18.0); WHITE BLOOD COUNT 18.4 x10^3/uL (3.4-10)
[2017-01-05 06:15] LABS: BLOOD UREA NITROGEN 15 mg/dL (7-18)
[2017-01-05 06:55] VITALS: BP 129/88
[2017-01-05] MEDS: ALBUTEROL/IPRATROPIUM 2.5MG/0.5MG, 3 ML NPPB SCH ×4 (07:00→19:56)
[2017-01-05] MEDS: ASPIRIN 81 MG TABLET EC PO SCH (08:38)
[2017-01-05] MEDS: CLOPIDOGREL 75 MG TABLET PO SCH (08:38)
[2017-01-05] MEDS: ENOXAPARIN 60 MG/0.6 ML SQ SCH ×2 (08:38→21:51)
[2017-01-05] MEDS: CARVEDILOL 3.125 MG TABLET PO SCH ×2 (08:38→20:14)
[2017-01-05] MEDS: BENZONATATE 100 MG CAPSULE PO SCH ×3 (08:38→20:14)
[2017-01-05] MEDS: methylPREDNISolone SOD SUCC 40 MG/ML IV SCH ×2 (10:23→21:51)
[2017-01-05] MEDS: AZITHROMYCIN 500 MG TABLET PO SCH (10:41)
[2017-01-05 12:23] VITALS: BP 116/76
[2017-01-05] MEDS ORDERED: WARFARIN 5 MG TABLET PO-COUM ONE (18:00)
[2017-01-05] MEDS: ATORVASTATIN 20 MG TABLET PO SCH (20:14)
[2017-01-05 20:35] VITALS: BP 111/76
[2017-01-05] MEDS: TEMAZEPAM 15 MG CAPSULE PO PRN (21:51)
[2017-01-06 04:20] VITALS: BP 115/70
[2017-01-06 05:30] LABS: HEMATOCRIT 45.1 % (39.2-51.8); WHITE BLOOD COUNT 17.9 x10^3/uL (3.4-10)
[2017-01-06 05:48] LABS: BLOOD UREA NITROGEN 18 mg/dL (7-18)
[2017-01-06] MEDS: GUAIFENESIN 200 MG TABLET PO SCH ×4 (06:15→22:34)
[2017-01-06 07:24] VITALS: BP 118/80
[2017-01-06] MEDS: ALBUTEROL/IPRATROPIUM 2.5MG/0.5MG, 3 ML NPPB SCH ×4 (07:33→20:00)
[2017-01-06] MEDS: ASPIRIN 81 MG TABLET EC PO SCH (09:50)
[2017-01-06] MEDS: CLOPIDOGREL 75 MG TABLET PO SCH (09:50)
[2017-01-06] MEDS: BENZONATATE 100 MG CAPSULE PO SCH ×3 (09:50→22:34)
[2017-01-06] MEDS: CARVEDILOL 3.125 MG TABLET PO SCH ×2 (09:50→22:34)
[2017-01-06] MEDS: AZITHROMYCIN 500 MG TABLET PO SCH (09:50)
[2017-01-06] MEDS: ENOXAPARIN 60 MG/0.6 ML SQ SCH ×2 (09:50→22:34)
[2017-01-06] MEDS: methylPREDNISolone SOD SUCC 40 MG/ML IV SCH (09:55)
[2017-01-06 15:16] VITALS: BP 124/84
[2017-01-06] MEDS ORDERED: SODIUM POLYSTYRENE SULFONATE ORAL SUSP PO ONE (17:00)
[2017-01-06] MEDS ORDERED: WARFARIN 5 MG TABLET PO-COUM ONE (18:00)
[2017-01-06 19:18] VITALS: BP 124/85
[2017-01-06] MEDS: TEMAZEPAM 15 MG CAPSULE PO PRN (22:34)
[2017-01-06] MEDS: FAMOTIDINE 20 MG TABLET PO SCH (22:34)
[2017-01-06] MEDS: ATORVASTATIN 20 MG TABLET PO SCH (22:34)
[2017-01-07 04:36] VITALS: BP 130/87
[2017-01-07 04:57] LABS: HEMATOCRIT 46.4 % (39.2-51.8); HEMOGLOBIN 15.5 g/dL (13.7-18.0); WHITE BLOOD COUNT 17.4 x10^3/uL (3.4-10)
[2017-01-07 05:01] LABS: BLOOD UREA NITROGEN 21 mg/dL (7-18)
[2017-01-07] MEDS: GUAIFENESIN 200 MG TABLET PO SCH ×4 (05:57→21:53)
[2017-01-07 07:41] VITALS: BP 145/94
[2017-01-07] MEDS: ALBUTEROL/IPRATROPIUM 2.5MG/0.5MG, 3 ML NPPB SCH ×4 (07:50→20:15)
[2017-01-07] MEDS: AZITHROMYCIN 500 MG TABLET PO SCH ×2 (09:00→11:58)
[2017-01-07] MEDS: ASPIRIN 81 MG TABLET EC PO SCH (10:34)
[2017-01-07] MEDS: CLOPIDOGREL 75 MG TABLET PO SCH (10:34)
[2017-01-07] MEDS: BENZONATATE 100 MG CAPSULE PO SCH ×3 (10:35→21:53)
[2017-01-07] MEDS: ENOXAPARIN 60 MG/0.6 ML SQ SCH ×2 (10:35→21:54)
[2017-01-07] MEDS: CARVEDILOL 3.125 MG TABLET PO SCH ×2 (10:35→21:52)
[2017-01-07] MEDS ORDERED: WARFARIN 7.5 MG TABLET PO-COUM SCH (18:00)
[2017-01-07 19:14] VITALS: BP 128/82
[2017-01-07] MEDS: FAMOTIDINE 20 MG TABLET PO SCH (21:53)
[2017-01-07] MEDS: ATORVASTATIN 20 MG TABLET PO SCH (21:53)
[2017-01-07] MEDS: TEMAZEPAM 15 MG CAPSULE PO PRN (21:54)
[2017-01-08] MEDS ORDERED: ONDANSETRON ODT 4 MG PO PRN (02:00)
[2017-01-08] MEDS ORDERED: ENALAPRILAT 1.25 MG/ML, 2ML IVPush PRN (02:00)
[2017-01-08] MEDS ORDERED: DOCUSATE 100 MG CAPSULE PO PRN (02:00)
[2017-01-08] MEDS ORDERED: LABETALOL 5MG/ML, 20ML IVPush PRN (02:00)
[2017-01-08] MEDS ORDERED: NITROGLYCERIN 0.4 MG BOTTLE (25 TABS) SL PRN (02:00)
[2017-01-08] MEDS ORDERED: ACETAMINOPHEN 325 MG TABLET PO PRN (02:00)
[2017-01-08 03:07] VITALS: BP 125/84
[2017-01-08] MEDS: GUAIFENESIN 200 MG TABLET PO SCH ×4 (06:26→20:49)
[2017-01-08] MEDS: ALBUTEROL/IPRATROPIUM 2.5MG/0.5MG, 3 ML NPPB SCH ×4 (06:45→19:02)
[2017-01-08 08:32] VITALS: BP 136/93
[2017-01-08] MEDS: ENOXAPARIN 60 MG/0.6 ML SQ SCH ×2 (09:00→20:51)
[2017-01-08] MEDS: CARVEDILOL 3.125 MG TABLET PO SCH ×2 (10:21→20:49)
[2017-01-08] MEDS: AZITHROMYCIN 500 MG TABLET PO SCH (10:21)
[2017-01-08] MEDS: CLOPIDOGREL 75 MG TABLET PO SCH (10:21)
[2017-01-08] MEDS: ASPIRIN 81 MG TABLET EC PO SCH (10:21)
[2017-01-08] MEDS: BENZONATATE 100 MG CAPSULE PO SCH ×3 (10:21→20:49)
[2017-01-08 15:00] VITALS: BP 148/100
[2017-01-08] MEDS ORDERED: DO NOT GIVE MC SCH (18:00)
[2017-01-08] MEDS: ATORVASTATIN 20 MG TABLET PO SCH (20:49)
[2017-01-08] MEDS: TEMAZEPAM 15 MG CAPSULE PO PRN (20:49)
[2017-01-08] MEDS: FAMOTIDINE 20 MG TABLET PO SCH (20:49)
[2017-01-08 20:52] VITALS: BP 129/89
[2017-01-09 02:21] VITALS: BP 144/99
[2017-01-09] MEDS: GUAIFENESIN 200 MG TABLET PO SCH ×4 (06:07→20:53)
[2017-01-09 06:54] VITALS: BP 147/102
[2017-01-09] MEDS: ALBUTEROL/IPRATROPIUM 2.5MG/0.5MG, 3 ML NPPB SCH ×4 (07:00→20:10)
[2017-01-09] MEDS: ENOXAPARIN 60 MG/0.6 ML SQ SCH (09:00)
[2017-01-09] MEDS: CARVEDILOL 3.125 MG TABLET PO SCH ×2 (09:13→20:54)
[2017-01-09] MEDS: ASPIRIN 81 MG TABLET EC PO SCH (09:13)
[2017-01-09] MEDS: CLOPIDOGREL 75 MG TABLET PO SCH (09:13)
[2017-01-09] MEDS: AZITHROMYCIN 500 MG TABLET PO SCH (09:13)
[2017-01-09] MEDS: BENZONATATE 100 MG CAPSULE PO SCH ×3 (09:13→20:54)
[2017-01-09 14:29] VITALS: BP 153/102
[2017-01-09] MEDS ORDERED: WARFARIN 1 MG TABLET PO-COUM ONE (18:00)
[2017-01-09 20:44] VITALS: BP 127/92
[2017-01-09] MEDS: ATORVASTATIN 20 MG TABLET PO SCH (20:54)
[2017-01-09] MEDS: FAMOTIDINE 20 MG TABLET PO SCH (20:54)
[2017-01-09] MEDS: TEMAZEPAM 15 MG CAPSULE PO PRN (22:16)
[2017-01-10 01:36] VITALS: BP 124/80
[2017-01-10] MEDS: GUAIFENESIN 200 MG TABLET PO SCH ×2 (06:19→11:31)
[2017-01-10] MEDS: ALBUTEROL/IPRATROPIUM 2.5MG/0.5MG, 3 ML NPPB SCH (06:26)
[2017-01-10] MEDS ORDERED: ALBUTEROL/IPRATROPIUM 2.5MG/0.5MG, 3 ML ONE ×2 (06:36→14:07)
[2017-01-10 07:26] VITALS: BP 132/92
[2017-01-10] MEDS: CARVEDILOL 3.125 MG TABLET PO SCH (08:40)
[2017-01-10] MEDS: ASPIRIN 81 MG TABLET EC PO SCH (08:40)
[2017-01-10] MEDS: BENZONATATE 100 MG CAPSULE PO SCH (08:40)
[2017-01-10] MEDS: AZITHROMYCIN 500 MG TABLET PO SCH (08:40)
[2017-01-10] MEDS: CLOPIDOGREL 75 MG TABLET PO SCH (08:40)
[2017-01-10 13:25] VITALS: BP 143/99
[2017-01-10] MEDS ORDERED: ASPI-621 PO (13:39)
[2017-01-10] MEDS ORDERED: ATOR20TA PO (13:39)
[2017-01-10] MEDS ORDERED: WARF3TAB PO-COUM (13:39)
[2017-01-10] MEDS ORDERED: CARV3.1212 PO (13:39)
[2017-01-10] MEDS ORDERED: CLOP75TA52 PO (13:39)
[2017-01-10] MEDS ORDERED: PRED10TA PO (13:39)
[2017-01-10 14:37] VITALS: BP 133/90
[2017-01-10] MEDS ORDERED: ENOX60SY4 SC (15:51)
[2017-01-10] MEDS ORDERED: ALBUTEROL/IPRATROPIUM 2.5MG/0.5MG, 3 ML NPPB SCH (16:00)
[2017-01-10] MEDS ORDERED: WARFARIN 3 MG TABLET PO-COUM ONE (18:00)
== END 2017-01-10 15:40 | disposition home or self-care (01) | DRG 189 ==
LOC: ED 19:22 → EDIP 22:25 → 4EST 01-04 10:09 → 3NE 01-07 18:07
PROVIDERS: ADMIT Internal Medicine; ATTEND Internal Medicine
DX: J96.00 Acute respiratory failure, unspecified whether with hypoxia or hypercapnia (principal); E44.1 Mild protein-calorie malnutrition; J44.1 Chronic obstructive pulmonary disease with (acute) exacerbation; E87.5 Hyperkalemia; F17.210 Nicotine dependence, cigarettes, uncomplicated; I25.10 Atherosclerotic heart disease of native coronary artery without angina pectoris; F12.90 Cannabis use, unspecified, uncomplicated; I25.2 Old myocardial infarction; Z59.0 Homelessness; Z79.01 Long term (current) use of anticoagulants; Z86.711 Personal history of pulmonary embolism; Z86.718 Personal history of other venous thrombosis and embolism; Z90.49 Acquired absence of other specified parts of digestive tract; Z91.19 Patient's noncompliance with other medical treatment and regimen; Z93.2 Ileostomy status; Z95.5 Presence of coronary angioplasty implant and graft; Z88.6 Allergy status to analgesic agent; Z88.1 Allergy status to other antibiotic agents; Z88.8 Allergy status to other drugs, medicaments and biological substances; Z68.20 Body mass index [BMI] 20.0-20.9, adult; Z71.6 Tobacco abuse counseling; T38.0X5A Adverse effect of glucocorticoids and synthetic analogues, initial encounter; Y92.89 Other specified places as the place of occurrence of the external cause
CPT/HCPCS: 36415; 71010; 71275; 80048; 80053; 81003; 82040; 83735; 84100; 84132; 84484; 85025; 85610; 87070; 87077; 87205; 93005; 93970; 94640; 96372; 96374; J1650; J7620; Q9967; J2920; J7512

== ENCOUNTER 2017-01-19 16:05 | Emergency (ER) | payer MEDICAID ==
[~2017-01-19] VITALS: Ht 160 cm; Wt 59.5 kg
[~2017-01-19 16:05] MED LIST changes: +ENOX60SY4 SC; +PRED10TA PO
[2017-01-19 16:50] LABS: HEMATOCRIT 45.9 % (39.2-51.8); HEMOGLOBIN 15.8 g/dL (13.7-18.0); WHITE BLOOD COUNT 22.1 x10^3/uL (3.4-10)
[2017-01-19 16:58] LABS: BLOOD UREA NITROGEN 9 mg/dL (7-18)
[2017-01-19 17:21] VITALS: BP 136/99
[2017-01-19] MEDS ORDERED: SODIUM CHLORIDE 0.9% 1,000ML IVBOLUS ONE (18:30)
== END 2017-01-19 19:36 | disposition home or self-care (01) ==
LOC: ED 18:34
DX: S30.1XXA Contusion of abdominal wall, initial encounter (principal); I10 Essential (primary) hypertension; I25.10 Atherosclerotic heart disease of native coronary artery without angina pectoris; J44.9 Chronic obstructive pulmonary disease, unspecified; M19.90 Unspecified osteoarthritis, unspecified site; G43.909 Migraine, unspecified, not intractable, without status migrainosus; I25.2 Old myocardial infarction; Z86.718 Personal history of other venous thrombosis and embolism
CPT/HCPCS: 36415; 80048; 82040; 85025; 85610; 85730; 93005; 99285

== ENCOUNTER 2017-01-22 17:11 | Emergency (ER) | payer MEDICAID ==
[~2017-01-22] VITALS: Ht 160 cm; Wt 59.0 kg
[2017-01-22] MEDS ORDERED: HYDROcodone/APAP 5/325 TABLET PO ONE (18:00)
[2017-01-22] MEDS ORDERED: HYDROcodone/APAP 5/325 TABLET ONE (18:06)
[2017-01-22] MEDS ORDERED: ALBUTEROL SULFATE 2.5 MG/3 ML ONE (18:47)
[2017-01-22] MEDS: ALBUTEROL SULFATE 2.5 MG/3 ML NPPB SCH (18:50)
[2017-01-22 19:02] VITALS: BP 122/82
== END 2017-01-22 19:04 | disposition home or self-care (01) ==
LOC: ED 18:41
DX: S39.012A Strain of muscle, fascia and tendon of lower back, initial encounter (principal); R06.02 Shortness of breath; G89.29 Other chronic pain; M54.5 Low back pain; R51 Headache; I10 Essential (primary) hypertension; I25.10 Atherosclerotic heart disease of native coronary artery without angina pectoris; J44.9 Chronic obstructive pulmonary disease, unspecified; R33.9 Retention of urine, unspecified; Z95.5 Presence of coronary angioplasty implant and graft; I25.2 Old myocardial infarction; G43.909 Migraine, unspecified, not intractable, without status migrainosus; X58.XXXA Exposure to other specified factors, initial encounter; Y93.89 Activity, other specified; Y92.89 Other specified places as the place of occurrence of the external cause; Y99.8 Other external cause status
CPT/HCPCS: 93005; 94640; 99283; J7613

== ENCOUNTER 2017-01-24 18:20 | Emergency (ER) | payer MEDICAID ==
[~2017-01-24] VITALS: Ht 160 cm; Wt 60.2 kg
[2017-01-24 18:31] VITALS: BP 151/97
[2017-01-24] MEDS ORDERED: ALBUTEROL SULFATE 2.5 MG/3 ML NPPB ONE (19:00)
[2017-01-24] MEDS ORDERED: ALBUTEROL/IPRATROPIUM 2.5MG/0.5MG, 3 ML NPPB ONE (19:00)
[2017-01-24] MEDS ORDERED: ALBUTEROL/IPRATROPIUM 2.5MG/0.5MG, 3 ML ONE (19:02)
[2017-01-24] MEDS ORDERED: ALBUTEROL SULFATE 2.5 MG/3 ML ONE (19:02)
== END 2017-01-24 20:05 | disposition home or self-care (01) ==
LOC: ED 19:50
DX: J44.1 Chronic obstructive pulmonary disease with (acute) exacerbation (principal); I10 Essential (primary) hypertension; F17.200 Nicotine dependence, unspecified, uncomplicated; I25.2 Old myocardial infarction; I25.10 Atherosclerotic heart disease of native coronary artery without angina pectoris; Z86.718 Personal history of other venous thrombosis and embolism; D72.829 Elevated white blood cell count, unspecified
CPT/HCPCS: 93005; 94640; 99283; J7613; J7620

== ENCOUNTER 2017-01-28 17:35 | Emergency (ER) | payer MEDICAID ==
[~2017-01-28] VITALS: Ht 160 cm; Wt 59.4 kg
[2017-01-28 17:36] VITALS: BP 154/99
[2017-01-28] MEDS ORDERED: ALBUTEROL/IPRATROPIUM 2.5MG/0.5MG, 3 ML ONE (18:25)
[2017-01-28 18:29] LABS: HEMATOCRIT 47.9 % (39.2-51.8); HEMOGLOBIN 16.1 g/dL (13.7-18.0); WHITE BLOOD COUNT 13.5 x10^3/uL (3.4-10)
[2017-01-28] MEDS ORDERED: ALBUTEROL/IPRATROPIUM 2.5MG/0.5MG, 3 ML NPPB ONE (18:30)
== END 2017-01-28 19:39 | disposition home or self-care (01) ==
LOC: ED 18:09
DX: R06.00 Dyspnea, unspecified (principal); J44.9 Chronic obstructive pulmonary disease, unspecified; I25.2 Old myocardial infarction; I10 Essential (primary) hypertension; G89.29 Other chronic pain; M19.90 Unspecified osteoarthritis, unspecified site; S30.1XXA Contusion of abdominal wall, initial encounter; X58.XXXA Exposure to other specified factors, initial encounter; Y93.89 Activity, other specified; Y99.8 Other external cause status; Y92.89 Other specified places as the place of occurrence of the external cause
CPT/HCPCS: 36415; 85025; 85610; 93005; 94640; 99285; J7620

== ENCOUNTER 2017-02-01 14:14 | Emergency (ER) | payer MEDICAID ==
[~2017-02-01] VITALS: Ht 160 cm; Wt 64.0 kg
[2017-02-01] MEDS ORDERED: ASPIRIN 81 MG TABLET CHEW PO ONE (15:00)
[2017-02-01] MEDS ORDERED: ASPIRIN 81 MG TABLET CHEW ONE (15:04)
[2017-02-01 15:09] LABS: HEMATOCRIT 51.8 % (39.2-51.8); HEMOGLOBIN 17.5 g/dL (13.7-18.0); WHITE BLOOD COUNT 17.9 x10^3/uL (3.4-10)
[2017-02-01 15:11] LABS: BLOOD UREA NITROGEN 10 mg/dL (7-18)
[2017-02-01 15:18] LABS: IS PT STATUS REG ER OR PRE ER? YES
[2017-02-01 15:29] LABS: DIFF TOTAL CELLS COUNTED 100; VERIFY COUNTS? YES
[2017-02-01] MEDS ORDERED: SODIUM CHLORIDE FLUSH 10ML SYR IVF ONE (15:30)
[2017-02-01 15:58] VITALS: BP 129/93
[2017-02-01] MEDS ORDERED: SODIUM CHLORIDE 0.9% 1,000ML IVBOLUS ONE (16:00)
[2017-02-03] MEDS ORDERED: WARF5TAB7 PO ×2 (18:53)
== END 2017-02-01 16:34 | disposition home or self-care (01) ==
LOC: ED 16:11
DX: R07.89 Other chest pain (principal); D72.829 Elevated white blood cell count, unspecified; Z95.5 Presence of coronary angioplasty implant and graft
CPT/HCPCS: 36415; 71010; 80048; 82040; 84484; 85025; 85610; 85730; 93005; 96360; 99285; J7030

== ENCOUNTER 2017-02-06 18:59 | Emergency (ER) | payer MEDICAID ==
[~2017-02-06] VITALS: Ht 160 cm; Wt 59.2 kg
[~2017-02-06 18:59] MED LIST changes: +WARF5TAB7 PO
[2017-02-06 19:01] VITALS: BP 145/105
== END 2017-02-06 22:20 | disposition home or self-care (01) ==
LOC: ED 22:14
DX: Z00.00 Encounter for general adult medical examination without abnormal findings (principal); I10 Essential (primary) hypertension; I25.2 Old myocardial infarction
CPT/HCPCS: 99281

== ENCOUNTER 2017-02-09 18:37 | Emergency (ER) | payer MEDICAID ==
[~2017-02-09] VITALS: Ht 160 cm; Wt 59.2 kg
[2017-02-09] MEDS ORDERED: ALBUTEROL/IPRATROPIUM 2.5MG/0.5MG, 3 ML ONE (18:55)
[2017-02-09] MEDS: ALBUTEROL/IPRATROPIUM 2.5MG/0.5MG, 3 ML NPPB SCH ×2 (18:59→21:47)
[2017-02-09 19:18] LABS: HEMATOCRIT 49.5 % (39.2-51.8); HEMOGLOBIN 16.9 g/dL (13.7-18.0); WHITE BLOOD COUNT 17.5 x10^3/uL (3.4-10)
[2017-02-09 19:27] LABS: BLOOD UREA NITROGEN 10 mg/dL (7-18)
[2017-02-09 19:50] LABS: IS PT STATUS REG ER OR PRE ER? YES
[2017-02-09] MEDS ORDERED: SODIUM CHLORIDE FLUSH 10ML SYR IVF ONE (20:30)
[2017-02-09] MEDS ORDERED: SODIUM CHLORIDE 0.9% 1,000ML IVBOLUS ONE ×2 (20:30)
[2017-02-09] MEDS ORDERED: OMNIPAQUE 350 MG/ML, 100ML BOTTLE ONE (22:18)
[2017-02-09 23:00] VITALS: BP 133/84
== END 2017-02-09 23:14 | disposition home or self-care (01) ==
LOC: ED 20:39
DX: J44.1 Chronic obstructive pulmonary disease with (acute) exacerbation (principal); G43.909 Migraine, unspecified, not intractable, without status migrainosus; I25.2 Old myocardial infarction; J43.2 Centrilobular emphysema; I25.10 Atherosclerotic heart disease of native coronary artery without angina pectoris; I11.9 Hypertensive heart disease without heart failure; Z95.5 Presence of coronary angioplasty implant and graft; Z86.718 Personal history of other venous thrombosis and embolism; Z86.711 Personal history of pulmonary embolism
CPT/HCPCS: 36415; 71020; 71275; 80048; 82040; 83605; 83880; 84484; 85025; 87040; 93005; 94640; 96360; 96361; 99285; J7030; J7512; Q9967; J7620

== ENCOUNTER 2017-02-10 14:01 | Emergency (ER) | payer MEDICAID ==
[~2017-02-10] VITALS: Ht 152.4 cm; Wt 59.1 kg
[2017-02-10 14:02] VITALS: BP 150/90
== END 2017-02-10 14:50 | disposition home or self-care (01) ==
LOC: ED 14:44
DX: S39.011A Strain of muscle, fascia and tendon of abdomen, initial encounter (principal); G89.11 Acute pain due to trauma; R00.0 Tachycardia, unspecified; J44.9 Chronic obstructive pulmonary disease, unspecified; G43.909 Migraine, unspecified, not intractable, without status migrainosus; I10 Essential (primary) hypertension; I25.10 Atherosclerotic heart disease of native coronary artery without angina pectoris; X58.XXXA Exposure to other specified factors, initial encounter; Y93.89 Activity, other specified; Y92.89 Other specified places as the place of occurrence of the external cause; Y99.8 Other external cause status
CPT/HCPCS: 99283

== ENCOUNTER 2017-02-13 20:24 | Emergency (ER) | payer MEDICAID ==
[~2017-02-13] VITALS: Ht 160 cm; Wt 59.0 kg
[2017-02-13 20:34] VITALS: BP 150/95
[2017-02-15] MEDS ORDERED: ALBU0.63 NEB (23:25)
== END 2017-02-13 22:48 | disposition home or self-care (01) ==
LOC: ED 22:42
DX: S76.112A Strain of left quadriceps muscle, fascia and tendon, initial encounter (principal); S76.111A Strain of right quadriceps muscle, fascia and tendon, initial encounter; G89.29 Other chronic pain; I10 Essential (primary) hypertension; J44.9 Chronic obstructive pulmonary disease, unspecified; X58.XXXA Exposure to other specified factors, initial encounter; Y93.89 Activity, other specified; Y92.89 Other specified places as the place of occurrence of the external cause; Y99.8 Other external cause status
CPT/HCPCS: 99283

== ENCOUNTER 2017-02-21 18:03 | Emergency (ER) | payer MEDICAID ==
[~2017-02-21] VITALS: Ht 160 cm; Wt 60.2 kg
[~2017-02-21 18:03] MED LIST changes: +ALBU0.63 NEB; +APIX5TAB PO; +AZIT500T5 PO
[2017-02-21] MEDS ORDERED: KETOROLAC 30 MG/1 ML ONE (18:42)
[2017-02-21] MEDS ORDERED: DIPHENHYDRAMINE 50 MG/ML, 1ML ONE (18:42)
[2017-02-21] MEDS ORDERED: METOCLOPRAMIDE 5 MG/ML, 2ML ONE (18:43)
[2017-02-21] MEDS ORDERED: KETOROLAC 30 MG/1 ML IVPush ONE (19:00)
[2017-02-21] MEDS ORDERED: SODIUM CHLORIDE FLUSH 10ML SYR IVF ONE (19:00)
[2017-02-21] MEDS ORDERED: METOCLOPRAMIDE 5 MG/ML, 2ML IVPush ONE (19:00)
[2017-02-21] MEDS ORDERED: DIPHENHYDRAMINE 50 MG/ML, 1ML IVPush ONE (19:00)
[2017-02-21] MEDS ORDERED: SODIUM CHLORIDE 0.9% 1,000ML IVBOLUS ONE (19:00)
[2017-02-21 20:02] VITALS: BP 110/77
== END 2017-02-21 20:02 | disposition home or self-care (01) ==
LOC: ED 19:05
DX: G43.909 Migraine, unspecified, not intractable, without status migrainosus (principal); J44.9 Chronic obstructive pulmonary disease, unspecified; I10 Essential (primary) hypertension; I25.2 Old myocardial infarction; I25.10 Atherosclerotic heart disease of native coronary artery without angina pectoris
CPT/HCPCS: 96361; 96374; 96375; 99284; J1200; J1885; J2765; J7030

== ENCOUNTER 2017-02-22 07:30 | Emergency (ER) | payer MEDICAID ==
[~2017-02-22] VITALS: Ht 160 cm; Wt 59.2 kg
[2017-02-22] MEDS ORDERED: ALBUTEROL/IPRATROPIUM 2.5MG/0.5MG, 3 ML NPPB ONE (08:00)
[2017-02-22 09:12] VITALS: BP 110/74
[2017-02-22] MEDS ORDERED: ALBUTEROL/IPRATROPIUM 2.5MG/0.5MG, 3 ML ONE (09:25)
== END 2017-02-22 09:40 | disposition home or self-care (01) ==
LOC: ED 07:54
DX: J44.1 Chronic obstructive pulmonary disease with (acute) exacerbation (principal); I25.2 Old myocardial infarction; I10 Essential (primary) hypertension; Z86.718 Personal history of other venous thrombosis and embolism; G43.909 Migraine, unspecified, not intractable, without status migrainosus; G89.29 Other chronic pain
CPT/HCPCS: 71020; 93005; 94640; 99284; J7512; J7620

== ENCOUNTER 2017-03-06 09:38 | Emergency (ER) | payer MEDICAID ==
[~2017-03-06] VITALS: Ht 160 cm; Wt 64.0 kg
[2017-03-06 09:41] VITALS: BP 136/88
[2017-03-06] MEDS ORDERED: ALBUTEROL/IPRATROPIUM 2.5MG/0.5MG, 3 ML NPPB ONE (11:00)
[2017-03-06] MEDS ORDERED: ALBUTEROL/IPRATROPIUM 2.5MG/0.5MG, 3 ML ONE (11:16)
== END 2017-03-06 13:32 | disposition home or self-care (01) ==
LOC: ED 10:38
DX: J44.1 Chronic obstructive pulmonary disease with (acute) exacerbation (principal); I25.2 Old myocardial infarction; I10 Essential (primary) hypertension; I25.10 Atherosclerotic heart disease of native coronary artery without angina pectoris; Z95.5 Presence of coronary angioplasty implant and graft; Z88.1 Allergy status to other antibiotic agents; Z88.6 Allergy status to analgesic agent; Z88.8 Allergy status to other drugs, medicaments and biological substances
CPT/HCPCS: 93005; 94640; 99283; J7620

== ENCOUNTER 2017-03-10 08:51 | Emergency (ER) | payer MEDICAID ==
[~2017-03-10] VITALS: Ht 160 cm; Wt 63.6 kg
[2017-03-10 08:55] VITALS: BP 128/92
[2017-03-10] MEDS ORDERED: KETOROLAC 30 MG/1 ML IM ONE (09:30)
[2017-03-10] MEDS ORDERED: KETOROLAC 30 MG/1 ML ONE (09:31)
[2017-03-10 10:09] LABS: BLOOD UREA NITROGEN 23 mg/dL (7-18)
== END 2017-03-10 10:32 | disposition home or self-care (01) ==
LOC: ED 09:09
DX: S39.012A Strain of muscle, fascia and tendon of lower back, initial encounter (principal); S50.12XA Contusion of left forearm, initial encounter; J44.9 Chronic obstructive pulmonary disease, unspecified; G43.909 Migraine, unspecified, not intractable, without status migrainosus; M19.90 Unspecified osteoarthritis, unspecified site; I25.2 Old myocardial infarction; I25.10 Atherosclerotic heart disease of native coronary artery without angina pectoris; F17.210 Nicotine dependence, cigarettes, uncomplicated; Z95.811 Presence of heart assist device; X58.XXXA Exposure to other specified factors, initial encounter; Y93.89 Activity, other specified; Y99.8 Other external cause status; Y92.89 Other specified places as the place of occurrence of the external cause
CPT/HCPCS: 36415; 80048; 82040; 93005; 96372; 99285; J1885

== ENCOUNTER 2017-04-12 21:13 | Inpatient (IN) | payer MEDICAID ==
[~2017-04-12] VITALS: Ht 161.3 cm; Wt 58.9 kg
[2017-04-12] MEDS ORDERED: SODIUM CHLORIDE 0.9% 1,000ML IVBOLUS ONE ×2 (21:30→22:30)
[2017-04-12 21:58] LABS: HEMATOCRIT 43.6 % (39.2-51.8); HEMOGLOBIN 14.7 g/dL (13.7-18.0); WHITE BLOOD COUNT 31.9 x10^3/uL (3.4-10)
[2017-04-12 22:10] LABS: BLOOD UREA NITROGEN 30 mg/dL (7-18)
[2017-04-12 22:14] LABS: IS PT STATUS REG ER OR PRE ER? YES
[2017-04-12] MEDS ORDERED: LEVOFLOXACIN/PMX 750MG/150ML 150 ML IV ONE (22:30)
[2017-04-12 22:32] LABS: DIFF TOTAL CELLS COUNTED 100 CELL DIFF
[2017-04-12 22:34] LABS: VERIFY COUNTS? YES
[2017-04-12] MEDS ORDERED: LEVOFLOXACIN/PMX 750MG/150ML 150 ML ONE (22:39)
[2017-04-13 00:10] LABS: RAPID INFLUENZA A Negative (Negative); RAPID INFLUENZA B Negative (Negative)
[2017-04-13] MEDS ORDERED: ACETAMINOPHEN 325 MG TABLET ONE (00:19)
[2017-04-13] MEDS ORDERED: ACETAMINOPHEN 325 MG TABLET PO ONE (00:30)
[2017-04-13] MEDS ORDERED: SODIUM CHLORIDE 0.9% 1,000 ML IV ONE (01:30)
[2017-04-13] MEDS ORDERED: ONDANSETRON 2MG/ML, 2ML IVPush PRN (01:30)
[2017-04-13 03:03] VITALS: BP 129/86
[2017-04-13 07:05] VITALS: BP 113/74
[2017-04-13] MEDS ORDERED: HEPARIN 5,000 UNITS/ML, 1ML SQ SCH (08:30)
[2017-04-13] MEDS ORDERED: DOCUSATE 100 MG CAPSULE PO PRN (08:30)
[2017-04-13] MEDS ORDERED: VANCOMYCIN PER PHARMACY MC PRN (08:30)
[2017-04-13 08:46] LABS: HEMOGLOBIN 13.1 g/dL (13.7-18.0)
[2017-04-13] MEDS ORDERED: PHARMACOKINETIC MONITORING MC PRN (09:00)
[2017-04-13] MEDS ORDERED: VANCOMYCIN PMX 1GM/200ML 200 ML IV SCH (09:00)
[2017-04-13] MEDS ORDERED: PHARMACOKINETIC CONSULTATION MC ONE (09:00)
[2017-04-13] MEDS: ACETAMINOPHEN 325 MG TABLET PO PRN ×2 (09:02→23:09)
[2017-04-13] MEDS: SODIUM CHLORIDE 0.9% 1,000 ML IV SCH ×2 (09:03→21:45)
[2017-04-13 09:04] LABS: IS PT STATUS REG ER OR PRE ER? NO
[2017-04-13 09:05] LABS: BLOOD UREA NITROGEN 19 mg/dL (7-18)
[2017-04-13 09:09] LABS: ASPARTATE AMINO TRANSFERASE 20 U/L (15-37)
[2017-04-13 09:29] LABS: DIFF TOTAL CELLS COUNTED 100 CELL DIFF
[2017-04-13 09:31] LABS: VERIFY COUNTS? YES
[2017-04-13] MEDS ORDERED: OMNIPAQUE 350 MG/ML, 100ML BOTTLE ONE (12:11)
[2017-04-13 13:03] VITALS: BP 120/80
[2017-04-13] MEDS: GUAIFENESIN 200 MG TABLET PO SCH ×2 (15:52→20:13)
[2017-04-13] MEDS: KETOROLAC 30 MG/1 ML IVPush SCH ×2 (15:53→20:14)
[2017-04-13] MEDS: METHOCARBAMOL 500 MG TABLET PO SCH ×2 (15:53→20:13)
[2017-04-13 20:09] VITALS: BP 103/69
[2017-04-13] MEDS: ATORVASTATIN 20 MG TABLET PO SCH (20:13)
[2017-04-13] MEDS: APIXABAN 5 MG TABLET PO SCH (20:13)
[2017-04-13] MEDS: CARVEDILOL 3.125 MG TABLET PO SCH ×2 (20:14→20:24)
[2017-04-13] MEDS ORDERED: CARVEDILOL 6.25 MG TABLET ONE (20:21)
[2017-04-13 23:23] VITALS: BP 120/80
[2017-04-14 01:35] VITALS: BP 137/87
[2017-04-14] MEDS: METHOCARBAMOL 500 MG TABLET PO SCH ×4 (05:53→20:32)
[2017-04-14] MEDS: GUAIFENESIN 200 MG TABLET PO SCH ×4 (05:53→20:32)
[2017-04-14 06:32] LABS: HEMATOCRIT 35.3 % (39.2-51.8); HEMOGLOBIN 11.9 g/dL (13.7-18.0); WHITE BLOOD COUNT 15.6 x10^3/uL (3.4-10)
[2017-04-14 06:39] LABS: ASPARTATE AMINO TRANSFERASE 16 U/L (15-37); BLOOD UREA NITROGEN 18 mg/dL (7-18)
[2017-04-14 07:28] VITALS: BP 127/80
[2017-04-14] MEDS: SODIUM CHLORIDE 0.9% 1,000 ML IV SCH (07:39)
[2017-04-14] MEDS: APIXABAN 5 MG TABLET PO SCH ×2 (07:40→20:32)
[2017-04-14] MEDS: ASPIRIN 81 MG TABLET EC PO SCH (07:40)
[2017-04-14] MEDS: KETOROLAC 30 MG/1 ML IVPush SCH ×3 (07:40→20:32)
[2017-04-14] MEDS: CARVEDILOL 3.125 MG TABLET PO SCH ×2 (07:40→20:33)
[2017-04-14] MEDS ORDERED: CHOLESTYRAMINE LIGHT 4GM PACKET PO PRN (13:00)
[2017-04-14 13:07] VITALS: BP 124/78
[2017-04-14] MEDS: LACTOBACILLUS CHEW TABLET PO SCH ×3 (15:07→20:32)
[2017-04-14 18:45] VITALS: BP 126/85
[2017-04-14] MEDS: ATORVASTATIN 20 MG TABLET PO SCH (20:32)
[2017-04-15 02:12] VITALS: BP 123/88
[2017-04-15 05:09] LABS: HEMATOCRIT 35.6 % (39.2-51.8); WHITE BLOOD COUNT 15.6 x10^3/uL (3.4-10)
[2017-04-15 05:26] LABS: ASPARTATE AMINO TRANSFERASE 15 U/L (15-37); BLOOD UREA NITROGEN 21 mg/dL (7-18)
[2017-04-15] MEDS: LACTOBACILLUS CHEW TABLET PO SCH ×3 (06:14→16:13)
[2017-04-15] MEDS: METHOCARBAMOL 500 MG TABLET PO SCH ×3 (06:14→16:14)
[2017-04-15] MEDS: GUAIFENESIN 200 MG TABLET PO SCH ×3 (06:14→16:14)
[2017-04-15 07:48] VITALS: BP 116/79
[2017-04-15] MEDS ORDERED: SODIUM CHLORIDE 0.9% 1,000 ML IV SCH (08:18)
[2017-04-15] MEDS: APIXABAN 5 MG TABLET PO SCH (08:57)
[2017-04-15] MEDS: ASPIRIN 81 MG TABLET EC PO SCH (08:57)
[2017-04-15] MEDS: CARVEDILOL 3.125 MG TABLET PO SCH (08:57)
[2017-04-15] MEDS: KETOROLAC 30 MG/1 ML IVPush SCH (08:57)
[2017-04-15 13:00] VITALS: BP 120/82
[2017-04-15 13:40] VITALS: BP 125/85
== END 2017-04-15 16:45 | disposition home or self-care (01) | DRG 871 ==
LOC: ED 21:45 → EDIP 04-13 01:30 → 4WST 04-13 03:49 → 3NE 04-13 23:00
PROVIDERS: ADMIT Surgery; ATTEND Surgery
DX: A41.9 Sepsis, unspecified organism (principal); J15.9 Unspecified bacterial pneumonia; J96.00 Acute respiratory failure, unspecified whether with hypoxia or hypercapnia; J84.9 Interstitial pulmonary disease, unspecified; E44.1 Mild protein-calorie malnutrition; E87.1 Hypo-osmolality and hyponatremia; J44.0 Chronic obstructive pulmonary disease with (acute) lower respiratory infection; J44.1 Chronic obstructive pulmonary disease with (acute) exacerbation; E11.9 Type 2 diabetes mellitus without complications; F17.200 Nicotine dependence, unspecified, uncomplicated; G43.909 Migraine, unspecified, not intractable, without status migrainosus; M54.9 Dorsalgia, unspecified; G89.4 Chronic pain syndrome; I10 Essential (primary) hypertension; I25.10 Atherosclerotic heart disease of native coronary artery without angina pectoris; T38.0X5A Adverse effect of glucocorticoids and synthetic analogues, initial encounter; Z79.01 Long term (current) use of anticoagulants; Z86.711 Personal history of pulmonary embolism; I25.2 Old myocardial infarction; Z95.5 Presence of coronary angioplasty implant and graft; Z79.899 Other long term (current) drug therapy; Z79.82 Long term (current) use of aspirin
CPT/HCPCS: 36415; 71010; 71275; 80048; 80053; 81003; 82040; 83605; 83735; 84100; 84145; 84484; 85025; 85610; 87040; 87046; 87070; 87205; 87324; 87328; 87329; 87400; 93005; 96361; 96365; J1644; J1885; J1956; J3370; Q9967; J7030

== ENCOUNTER 2017-04-18 22:56 | Emergency (ER) | payer MEDICAID ==
[~2017-04-18] VITALS: Ht 160 cm; Wt 63.8 kg
[2017-04-18 23:00] VITALS: BP 130/90
[2017-04-18] MEDS ORDERED: KETOROLAC 30 MG/1 ML ONE (23:26)
[2017-04-18] MEDS ORDERED: KETOROLAC 30 MG/1 ML IM ONE (23:30)
== END 2017-04-18 23:53 | disposition home or self-care (01) ==
LOC: ED 23:45
DX: S39.012A Strain of muscle, fascia and tendon of lower back, initial encounter (principal); M54.42 Lumbago with sciatica, left side; J44.9 Chronic obstructive pulmonary disease, unspecified; I25.10 Atherosclerotic heart disease of native coronary artery without angina pectoris; Z86.718 Personal history of other venous thrombosis and embolism; I10 Essential (primary) hypertension; I25.2 Old myocardial infarction; X58.XXXA Exposure to other specified factors, initial encounter; Y93.89 Activity, other specified; Y99.8 Other external cause status; Y92.89 Other specified places as the place of occurrence of the external cause
CPT/HCPCS: 96372; 99283; J1885

== ENCOUNTER 2017-05-16 14:10 | Inpatient (IN) | payer MEDICAID ==
[~2017-05-16] VITALS: Ht 161.3 cm; Wt 63.5 kg
[2017-05-16] MEDS ORDERED: WARF2.5T73 PO (14:34)
[2017-05-16] MEDS ORDERED: ONDANSETRON 2MG/ML, 2ML IVPush PRN (18:30)
[2017-05-16] MEDS ORDERED: BISACODYL 10 MG SUPP PR PRN (18:30)
[2017-05-16] MEDS ORDERED: POLYETHYLENE GLYCOL 17 GM PACKET PO PRN (18:30)
[2017-05-16 19:00] LABS: MEAN CORPUSCULAR HGB CONC 33.8 g/dL (33.2-36.2); MEAN CORPUSCULAR VOLUME 91.7 fL (81-97); MEAN PLATELET VOLUME 7.8 fL (7.4-10.4); PLATELET COUNT 257 x10^3/uL (130-400); RED BLOOD COUNT 4.35 x10^6/uL (4.38-5.82); RED CELL DISTRIBUTION WIDTH 18.9 % (9.4-14.8)
[2017-05-16 19:11] LABS: ALBUMIN 3.2 g/dL (3.4-5.0); ANION GAP 7 mmol/L (5-15); CHLORIDE 102 mmol/L (98-107)
[2017-05-16 19:16] LABS: ALANINE AMINOTRANSFERASE 84 U/L (12-78); ALKALINE PHOSPHATASE 94 U/L (45-117); BILIRUBIN,TOTAL 0.7 mg/dL (0.2-1.0); CALCIUM 8.7 mg/dL (8.5-10.1); CREATININE 0.78 mg/dL (0.7-1.3); TOTAL PROTEIN 6.1 g/dL (6.4-8.2)
[2017-05-16] MEDS ORDERED: GADOBUTROL 7.5 MMOL/7.5 ML PFS ONE (19:27)
[2017-05-16 19:55] LABS: INTERNATIONAL NORMALIZED RATIO 2.2 (0.93-1.1); PROTHROMBIN TIME 22.5 Seconds (9.6-11.5)
[2017-05-16 20:15] LABS: BASOPHILS # (AUTO) 0.23 x10^3/uL (0-0.1); BASOPHILS % (AUTO) 1 % (0-1); EOSINOPHILS # (AUTO) 0.24 x10^3/uL (0-0.4); EOSINOPHILS % (AUTO) 1 % (1-7); LYMPHOCYTES # (AUTO) 2.78 x10^3/uL (1-3.4); LYMPHOCYTES % (AUTO) 10 % (22-44); MD SCAN; MONOCYTES # (AUTO) 0.92 x10^3/uL (0.2-0.8); MONOCYTES % (AUTO) 3 % (2-9); NEUTROPHILS # (AUTO) 22.69 x10^3/uL (1.8-6.8); NEUTROPHILS % (AUTO) 85 % (42-75)
[2017-05-16 20:49] VITALS: BP 121/86
[2017-05-16] MEDS ORDERED: HEPARIN 5,000 UNITS/ML, 1ML IV ONE (21:00)
[2017-05-16] MEDS ORDERED: CARVEDILOL 6.25 MG TABLET ONE (21:57)
[2017-05-16] MEDS ORDERED: ALBUTEROL SULFATE 2.5 MG/3 ML ONE (22:18)
[2017-05-16] MEDS ORDERED: OMNIPAQUE 350 MG/ML, 150 ML BOTTLE ONE (22:19)
[2017-05-16] MEDS ORDERED: ALBUTEROL/IPRATROPIUM 2.5MG/0.5MG, 3 ML NPPB PRN (22:30)
[2017-05-16] MEDS: CARVEDILOL 3.125 MG TABLET PO SCH (22:37)
[2017-05-16] MEDS: OXYcodone IR 5MG TABLET PO PRN (22:38)
[2017-05-16] MEDS: SODIUM CHLORIDE FLUSH 10ML SYR IVF SCH (22:39)
[2017-05-16] MEDS: HEPARIN 25,000 UNITS/500ML PMX 500 ML IV PRN (22:40)
[2017-05-17 01:26] VITALS: BP 120/81
[2017-05-17] MEDS: OXYcodone IR 5MG TABLET PO PRN ×3 (05:03→20:31)
[2017-05-17 05:23] LABS: MEAN CORPUSCULAR HGB CONC 33.7 g/dL (33.2-36.2); MEAN PLATELET VOLUME 8.1 fL (7.4-10.4); PLATELET COUNT 228 x10^3/uL (130-400); RED BLOOD COUNT 3.96 x10^6/uL (4.38-5.82)
[2017-05-17 05:36] LABS: CHLORIDE 103 mmol/L (98-107)
[2017-05-17 05:43] LABS: ALANINE AMINOTRANSFERASE 68 U/L (12-78); ALBUMIN 2.7 g/dL (3.4-5.0); ALKALINE PHOSPHATASE 83 U/L (45-117); ANION GAP 4 mmol/L (5-15); BILIRUBIN,TOTAL 0.6 mg/dL (0.2-1.0); CALCIUM 7.8 mg/dL (8.5-10.1); CREATININE 0.73 mg/dL (0.7-1.3); TOTAL PROTEIN 5.4 g/dL (6.4-8.2)
[2017-05-17] MEDS: HEPARIN 5,000 UNITS/ML, 1ML IV PRN ×3 (05:50→20:20)
[2017-05-17 06:07] LABS: BASOPHILS # (AUTO) 0.05 x10^3/uL (0-0.1); BASOPHILS % (AUTO) 0 % (0-1); EOSINOPHILS # (AUTO) 0.28 x10^3/uL (0-0.4); EOSINOPHILS % (AUTO) 1 % (1-7); LYMPHOCYTES # (AUTO) 2.56 x10^3/uL (1-3.4); LYMPHOCYTES % (AUTO) 13 % (22-44); MD SCAN; MONOCYTES % (AUTO) 3 % (2-9); NEUTROPHILS # (AUTO) 15.97 x10^3/uL (1.8-6.8); NEUTROPHILS % (AUTO) 82 % (42-75)
[2017-05-17] MEDS: ALBUTEROL/IPRATROPIUM 2.5MG/0.5MG, 3 ML NPPB SCH ×4 (07:00→19:52)
[2017-05-17 07:58] VITALS: BP 117/73
[2017-05-17] MEDS: SENNA/DOCUSATE TABLET PO SCH (09:00)
[2017-05-17] MEDS: CARVEDILOL 3.125 MG TABLET PO SCH ×2 (10:02→20:20)
[2017-05-17] MEDS: SODIUM CHLORIDE FLUSH 10ML SYR IVF SCH ×2 (10:03→20:21)
[2017-05-17] MEDS: ACETAMINOPHEN 325 MG TABLET PO PRN (10:03)
[2017-05-17 13:34] VITALS: BP 111/75
[2017-05-17 19:08] VITALS: BP 107/73
[2017-05-17] MEDS: HEPARIN 25,000 UNITS/500ML PMX 500 ML IV PRN (23:57)
[2017-05-18 00:29] VITALS: BP 120/71
[2017-05-18] MEDS ORDERED: ZOLPIDEM 5MG TABLET PO ONE (00:30)
[2017-05-18] MEDS: OXYcodone IR 5MG TABLET PO PRN ×2 (02:27→18:43)
[2017-05-18 05:14] LABS: BASOPHILS # (AUTO) 0.08 x10^3/uL (0-0.1); BASOPHILS % (AUTO) 1 % (0-1); EOSINOPHILS # (AUTO) 0.38 x10^3/uL (0-0.4); EOSINOPHILS % (AUTO) 2 % (1-7); LYMPHOCYTES # (AUTO) 1.98 x10^3/uL (1-3.4); LYMPHOCYTES % (AUTO) 12 % (22-44); MD NO; MEAN CORPUSCULAR HEMOGLOBIN 31.3 pg (27.5-34.5); MEAN CORPUSCULAR HGB CONC 33.6 g/dL (33.2-36.2); MONOCYTES # (AUTO) 0.57 x10^3/uL (0.2-0.8); MONOCYTES % (AUTO) 3 % (2-9); NEUTROPHILS # (AUTO) 13.82 x10^3/uL (1.8-6.8); NEUTROPHILS % (AUTO) 82 % (42-75); PLATELET COUNT 198 x10^3/uL (130-400); RED CELL DISTRIBUTION WIDTH 19.6 % (9.4-14.8)
[2017-05-18 05:16] LABS: ANION GAP 6 mmol/L (5-15); CALCIUM 7.9 mg/dL (8.5-10.1); CHLORIDE 106 mmol/L (98-107)
[2017-05-18 05:19] LABS: CREATININE 0.71 mg/dL (0.7-1.3)
[2017-05-18] MEDS: ALBUTEROL/IPRATROPIUM 2.5MG/0.5MG, 3 ML NPPB SCH ×4 (06:51→19:58)
[2017-05-18 07:55] VITALS: BP 117/69
[2017-05-18] MEDS: SENNA/DOCUSATE TABLET PO SCH (08:25)
[2017-05-18] MEDS: SODIUM CHLORIDE FLUSH 10ML SYR IVF SCH ×2 (08:33→20:27)
[2017-05-18] MEDS: CARVEDILOL 3.125 MG TABLET PO SCH ×2 (08:33→20:26)
[2017-05-18] MEDS ORDERED: morphine SULFATE 10 MG/ML, 1ML IVPush PRN (09:30)
[2017-05-18 12:44] VITALS: BP 121/72
[2017-05-18] MEDS ORDERED: PAPAVERINE 30 MG/ML, 2ML ONE (12:51)
[2017-05-18] MEDS ORDERED: HEPARIN 1,000 UNITS/ML, 10ML ONE (12:51)
[2017-05-18] MEDS ORDERED: BACITRACIN 50,000 UNIT ONE (12:52)
[2017-05-18] MEDS ORDERED: THROMBIN 20,000 UNIT VIAL TP ONE (12:52)
[2017-05-18] MEDS ORDERED: PROPOFOL 10 MG/ML, 20ML ONE (13:26)
[2017-05-18] MEDS ORDERED: LIDOCAINE-MPF 2% ,5ML ONE (13:26)
[2017-05-18] MEDS ORDERED: MEPERIDINE/PF 25MG/0.5ML IVPush PRN (13:30)
[2017-05-18] MEDS ORDERED: FENTANYL PF 100 MCG/2ML IV PRN (13:30)
[2017-05-18] MEDS ORDERED: HYDROcodone/APAP 7.5-325MG/15ML UDC PO PRN (13:30)
[2017-05-18] MEDS ORDERED: OXYcodone 5 MG/5 ML ORAL.SOL UDC PO PRN (13:30)
[2017-05-18] MEDS ORDERED: ONDANSETRON 2MG/ML, 2ML IVPush PRN (13:30)
[2017-05-18] MEDS ORDERED: CLINDAMYCIN 150 MG/ML, 6ML ONE (14:08)
[2017-05-18] MEDS ORDERED: ONDANSETRON 2MG/ML, 2ML ONE (14:27)
[2017-05-18] MEDS ORDERED: DEXAMETHASONE 4 MG/ML, 1ML ONE ×2 (14:27)
[2017-05-18] MEDS ORDERED: FENTANYL PF 100 MCG/2ML ONE (14:36)
[2017-05-18] MEDS ORDERED: VISIPAQUE 270 MG/ML, 50ML BOTTLE ONE (14:39)
[2017-05-18] MEDS ORDERED: morphine SULFATE 10 MG/ML, 1ML ONE (15:04)
[2017-05-18] MEDS: morphine SULFATE 10 MG/ML, 1ML IV PRN ×2 (15:06→15:16)
[2017-05-18] MEDS ORDERED: ACETAMINOPHEN 650 MG/20.3 ML UDC ONE (15:10)
[2017-05-18] MEDS ORDERED: OXYcodone 5 MG/5 ML ORAL.SOL UDC ONE (15:11)
[2017-05-18] MEDS: ACETAMINOPHEN 325 MG TABLET PO PRN (15:14)
[2017-05-18 16:11] VITALS: BP 108/75
[2017-05-18 19:06] VITALS: BP 114/83
[2017-05-18 21:00] LABS: MICROSCOPIC NOT IND
[2017-05-18 21:04] LABS: CULTURE INDICATED? NO
[2017-05-18] MEDS: HEPARIN 25,000 UNITS/500ML PMX 500 ML IV PRN (23:14)
[2017-05-19 00:44] VITALS: BP 118/72
[2017-05-19] MEDS: OXYcodone IR 5MG TABLET PO PRN ×4 (00:44→19:51)
[2017-05-19] MEDS: ACETAMINOPHEN 325 MG TABLET PO PRN (01:35)
[2017-05-19 05:30] LABS: BASOPHILS # (AUTO) 0.39 x10^3/uL (0-0.1); BASOPHILS % (AUTO) 2 % (0-1); EOSINOPHILS % (AUTO) 0 % (1-7); LYMPHOCYTES # (AUTO) 0.48 x10^3/uL (1-3.4); LYMPHOCYTES % (AUTO) 3 % (22-44); MD NO; MEAN CORPUSCULAR HEMOGLOBIN 31.1 pg (27.5-34.5); MEAN CORPUSCULAR HGB CONC 33.6 g/dL (33.2-36.2); MEAN CORPUSCULAR VOLUME 92.7 fL (81-97); MEAN PLATELET VOLUME 8.1 fL (7.4-10.4); MONOCYTES # (AUTO) 0.22 x10^3/uL (0.2-0.8); MONOCYTES % (AUTO) 1 % (2-9); NEUTROPHILS # (AUTO) 16.37 x10^3/uL (1.8-6.8); NEUTROPHILS % (AUTO) 94 % (42-75); PLATELET COUNT 198 x10^3/uL (130-400); RED BLOOD COUNT 3.39 x10^6/uL (4.38-5.82); RED CELL DISTRIBUTION WIDTH 19.2 % (9.4-14.8)
[2017-05-19 05:34] LABS: ANION GAP 6 mmol/L (5-15); CALCIUM 8.3 mg/dL (8.5-10.1); CHLORIDE 101 mmol/L (98-107); CREATININE 0.74 mg/dL (0.7-1.3)
[2017-05-19] MEDS: HEPARIN 5,000 UNITS/ML, 1ML IV PRN ×2 (06:35→21:44)
[2017-05-19] MEDS: ALBUTEROL/IPRATROPIUM 2.5MG/0.5MG, 3 ML NPPB SCH ×4 (07:40→19:48)
[2017-05-19 07:58] VITALS: BP 121/82
[2017-05-19] MEDS: SENNA/DOCUSATE TABLET PO SCH (09:00)
[2017-05-19] MEDS: SODIUM CHLORIDE FLUSH 10ML SYR IVF SCH ×2 (09:13→21:57)
[2017-05-19] MEDS: CARVEDILOL 3.125 MG TABLET PO SCH ×2 (09:13→21:57)
[2017-05-19 12:44] VITALS: BP 126/80
[2017-05-19 15:26] LABS: INTERNATIONAL NORMALIZED RATIO 1.23 (0.93-1.1); PROTHROMBIN TIME 12.7 Seconds (9.6-11.5)
[2017-05-19] MEDS ORDERED: WARFARIN 5 MG TABLET PO-COUM ONE (18:00)
[2017-05-19 19:07] VITALS: BP 143/94
[2017-05-19] MEDS: HEPARIN 25,000 UNITS/500ML PMX 500 ML IV PRN (21:48)
[2017-05-19] MEDS ORDERED: ZOLPIDEM 5MG TABLET PO ONE (23:00)
[2017-05-20] MEDS: ACETAMINOPHEN 325 MG TABLET PO PRN (00:47)
[2017-05-20 03:46] VITALS: BP 128/89
[2017-05-20 04:05] LABS: BASOPHILS % (AUTO) 1 % (0-1); EOSINOPHILS # (AUTO) 0.26 x10^3/uL (0-0.4); EOSINOPHILS % (AUTO) 2 % (1-7); LYMPHOCYTES # (AUTO) 1.76 x10^3/uL (1-3.4); LYMPHOCYTES % (AUTO) 12 % (22-44); MD NO; MEAN CORPUSCULAR HEMOGLOBIN 31.6 pg (27.5-34.5); MEAN CORPUSCULAR HGB CONC 34.1 g/dL (33.2-36.2); MEAN CORPUSCULAR VOLUME 92.7 fL (81-97); MEAN PLATELET VOLUME 8.6 fL (7.4-10.4); MONOCYTES # (AUTO) 0.79 x10^3/uL (0.2-0.8); MONOCYTES % (AUTO) 5 % (2-9); NEUTROPHILS # (AUTO) 11.83 x10^3/uL (1.8-6.8); NEUTROPHILS % (AUTO) 80 % (42-75); PLATELET COUNT 153 x10^3/uL (130-400); RED BLOOD COUNT 3.13 x10^6/uL (4.38-5.82); RED CELL DISTRIBUTION WIDTH 19.2 % (9.4-14.8)
[2017-05-20 04:11] LABS: ANION GAP 8 mmol/L (5-15); CALCIUM 8.2 mg/dL (8.5-10.1); CHLORIDE 102 mmol/L (98-107); CREATININE 0.87 mg/dL (0.7-1.3)
[2017-05-20] MEDS: HEPARIN 5,000 UNITS/ML, 1ML IV PRN ×3 (04:24→18:35)
[2017-05-20 05:15] LABS: THYROID STIMULATING HORMONE 0.726 mIU/L (0.358-3.740)
[2017-05-20 07:01] VITALS: BP 126/85
[2017-05-20] MEDS: ALBUTEROL/IPRATROPIUM 2.5MG/0.5MG, 3 ML NPPB SCH ×4 (07:24→18:56)
[2017-05-20] MEDS: OXYcodone IR 5MG TABLET PO PRN ×3 (07:43→21:14)
[2017-05-20] MEDS: CARVEDILOL 3.125 MG TABLET PO SCH ×2 (08:34→20:27)
[2017-05-20] MEDS: SENNA/DOCUSATE TABLET PO SCH (08:34)
[2017-05-20] MEDS: SODIUM CHLORIDE FLUSH 10ML SYR IVF SCH ×2 (08:34→20:27)
[2017-05-20 09:51] LABS: INTERNATIONAL NORMALIZED RATIO 1.03 (0.93-1.1); PROTHROMBIN TIME 10.7 Seconds (9.6-11.5)
[2017-05-20 12:52] VITALS: BP 122/86
[2017-05-20 14:56] LABS: HCT (SEDRATE) 30.4 % (39.2-51.8)
[2017-05-20 15:10] LABS: CALCIUM 8.6 mg/dL (8.5-10.1)
[2017-05-20 15:36] LABS: FOLATE LEVEL 6.9 ng/mL (3.1-17.5); FREE T4 (FREE THYROXINE) 0.92 ng/dL (0.76-1.46); THYROID STIMULATING HORMONE 1.11 mIU/L (0.358-3.740)
[2017-05-20 16:07] LABS: SEDIMENTATION RATE 67 mm/hr (0-10)
[2017-05-20] MEDS: HEPARIN 25,000 UNITS/500ML PMX 500 ML IV PRN (16:22)
[2017-05-20] MEDS ORDERED: WARFARIN 5 MG TABLET PO-COUM ONE (18:00)
[2017-05-20 18:55] VITALS: BP 113/72
[2017-05-20] MEDS ORDERED: ZOLPIDEM 5MG TABLET PO ONE (22:00)
[2017-05-21] MEDS: OXYcodone IR 5MG TABLET PO PRN ×3 (04:53→17:19)
[2017-05-21 05:09] VITALS: BP 116/97
[2017-05-21] MEDS: ALBUTEROL/IPRATROPIUM 2.5MG/0.5MG, 3 ML NPPB SCH ×4 (06:36→20:46)
[2017-05-21 07:03] LABS: INTERNATIONAL NORMALIZED RATIO 0.98 (0.93-1.1); PROTHROMBIN TIME 10.2 Seconds (9.6-11.5)
[2017-05-21 07:14] VITALS: BP 117/78
[2017-05-21] MEDS: HEPARIN 25,000 UNITS/500ML PMX 500 ML IV PRN (07:48)
[2017-05-21] MEDS: CARVEDILOL 3.125 MG TABLET PO SCH ×2 (07:50→20:11)
[2017-05-21] MEDS: SENNA/DOCUSATE TABLET PO SCH (07:50)
[2017-05-21] MEDS: SODIUM CHLORIDE FLUSH 10ML SYR IVF SCH ×2 (07:50→20:11)
[2017-05-21 13:18] VITALS: BP 127/65
[2017-05-21] MEDS ORDERED: WARFARIN 5 MG TABLET PO-COUM ONE (18:00)
[2017-05-21 20:06] VITALS: BP 122/82
[2017-05-21] MEDS: TEMAZEPAM 15 MG CAPSULE PO PRN (20:11)
[2017-05-21] MEDS: HEPARIN 5,000 UNITS/ML, 1ML IV PRN (21:02)
[2017-05-22] MEDS: OXYcodone IR 5MG TABLET PO PRN ×4 (00:41→19:32)
[2017-05-22] MEDS: HEPARIN 25,000 UNITS/500ML PMX 500 ML IV PRN ×2 (00:52→18:06)
[2017-05-22 01:42] VITALS: BP 129/82
[2017-05-22 03:27] LABS: INTERNATIONAL NORMALIZED RATIO 1.34 (0.93-1.1); PROTHROMBIN TIME 13.9 Seconds (9.6-11.5)
[2017-05-22] MEDS: ALBUTEROL/IPRATROPIUM 2.5MG/0.5MG, 3 ML NPPB SCH ×4 (07:00→20:01)
[2017-05-22] MEDS: CARVEDILOL 3.125 MG TABLET PO SCH ×2 (07:18→21:29)
[2017-05-22] MEDS: SENNA/DOCUSATE TABLET PO SCH (07:19)
[2017-05-22] MEDS: SODIUM CHLORIDE FLUSH 10ML SYR IVF SCH ×2 (07:19→21:29)
[2017-05-22 07:53] VITALS: BP 126/92
[2017-05-22] MEDS ORDERED: GADOBUTROL 7.5 MMOL/7.5 ML PFS ONE (11:17)
[2017-05-22 13:03] VITALS: BP 123/81
[2017-05-22] MEDS ORDERED: WARFARIN 5 MG TABLET PO-COUM ONE (18:00)
[2017-05-22 19:24] VITALS: BP 128/87
[2017-05-22] MEDS: TEMAZEPAM 15 MG CAPSULE PO PRN (21:28)
[2017-05-23] MEDS: OXYcodone IR 5MG TABLET PO PRN ×4 (03:04→22:26)
[2017-05-23 03:08] VITALS: BP 119/86
[2017-05-23 05:44] LABS: INTERNATIONAL NORMALIZED RATIO 1.66 (0.93-1.1); PROTHROMBIN TIME 17.1 Seconds (9.6-11.5)
[2017-05-23] MEDS: HEPARIN 5,000 UNITS/ML, 1ML IV PRN (06:12)
[2017-05-23] MEDS: ALBUTEROL/IPRATROPIUM 2.5MG/0.5MG, 3 ML NPPB SCH ×4 (07:30→18:35)
[2017-05-23 07:47] VITALS: BP 121/81
[2017-05-23] MEDS ORDERED: ERGOCALCIFEROL 50,000 UNIT CAPSULE PO SCH (08:30)
[2017-05-23] MEDS: SENNA/DOCUSATE TABLET PO SCH (09:00)
[2017-05-23] MEDS: CARVEDILOL 3.125 MG TABLET PO SCH ×2 (09:41→21:16)
[2017-05-23] MEDS: SODIUM CHLORIDE FLUSH 10ML SYR IVF SCH ×2 (09:42→21:16)
[2017-05-23] MEDS: CYANOCOBALAMIN 1,000 MCG TABLET PO SCH (10:25)
[2017-05-23] MEDS: HEPARIN 25,000 UNITS/500ML PMX 500 ML IV PRN (10:54)
[2017-05-23 14:25] LABS: ANA SCREEN NEGATIVE (Negative)
[2017-05-23 15:46] VITALS: BP 112/76
[2017-05-23] MEDS ORDERED: WARFARIN 5 MG TABLET PO-COUM ONE (18:00)
[2017-05-23 19:49] VITALS: BP 113/78
[2017-05-23] MEDS: TEMAZEPAM 15 MG CAPSULE PO PRN (21:17)
[2017-05-24] MEDS: HEPARIN 25,000 UNITS/500ML PMX 500 ML IV PRN (00:58)
[2017-05-24 01:01] VITALS: BP 122/86
[2017-05-24] MEDS: OXYcodone IR 5MG TABLET PO PRN ×2 (05:48→13:05)
[2017-05-24 06:24] LABS: INTERNATIONAL NORMALIZED RATIO 2.78 (0.93-1.1); PROTHROMBIN TIME 28.3 Seconds (9.6-11.5)
[2017-05-24] MEDS: ALBUTEROL/IPRATROPIUM 2.5MG/0.5MG, 3 ML NPPB SCH ×2 (06:51→10:33)
[2017-05-24 06:56] VITALS: BP 119/85
[2017-05-24] MEDS: SENNA/DOCUSATE TABLET PO SCH (08:48)
[2017-05-24] MEDS: CARVEDILOL 3.125 MG TABLET PO SCH (08:52)
[2017-05-24] MEDS: CYANOCOBALAMIN 1,000 MCG TABLET PO SCH (08:52)
[2017-05-24] MEDS: SODIUM CHLORIDE FLUSH 10ML SYR IVF SCH (08:53)
[2017-05-24] MEDS ORDERED: GABA300C PO (09:34)
[2017-05-24] MEDS ORDERED: IPRA3AMP NPPB (09:34)
[2017-05-24] MEDS ORDERED: POLY17PO5 PO (09:34)
[2017-05-24] MEDS ORDERED: WARF5TAB PO (09:34)
[2017-05-24] MEDS ORDERED: ERGO500017 PO (09:34)
[2017-05-24] MEDS ORDERED: CYAN10005 PO (09:34)
[2017-05-24] MEDS ORDERED: SIMV20TA PO (09:36)
[2017-05-24 13:23] VITALS: BP 116/77
[2017-05-24] MEDS ORDERED: WARFARIN 2.5 MG TABLET PO-COUM ONE (18:00)
== END 2017-05-24 16:20 | DRG 271 ==
LOC: ED 16:23 → EDIP 18:22 → 3NE 20:43
PROVIDERS: ADMIT Internal Medicine Pulmonary Disease; ATTEND Internal Medicine Pulmonary Disease
PROC: 04CN3ZZ Extirpation of Matter from Left Popliteal Artery, Percutaneous Approach (ICD-10-PCS; 2017-05-18)
PROC: B41G1ZZ Fluoroscopy of Left Lower Extremity Arteries using Low Osmolar Contrast (ICD-10-PCS; principal; 2017-05-18 13:30)
DX: I70.202 Unspecified atherosclerosis of native arteries of extremities, left leg (principal); D68.69 Other thrombophilia; J96.10 Chronic respiratory failure, unspecified whether with hypoxia or hypercapnia; E87.1 Hypo-osmolality and hyponatremia; E87.5 Hyperkalemia; G62.9 Polyneuropathy, unspecified; G89.4 Chronic pain syndrome; F12.90 Cannabis use, unspecified, uncomplicated; E55.9 Vitamin D deficiency, unspecified; E78.5 Hyperlipidemia, unspecified; D64.9 Anemia, unspecified; F17.210 Nicotine dependence, cigarettes, uncomplicated; G43.909 Migraine, unspecified, not intractable, without status migrainosus; I25.10 Atherosclerotic heart disease of native coronary artery without angina pectoris; I10 Essential (primary) hypertension; M21.372 Foot drop, left foot; M21.371 Foot drop, right foot; Z59.0 Homelessness; Z86.718 Personal history of other venous thrombosis and embolism; Z86.711 Personal history of pulmonary embolism; Z83.3 Family history of diabetes mellitus; I25.2 Old myocardial infarction; Z99.81 Dependence on supplemental oxygen; Z90.49 Acquired absence of other specified parts of digestive tract; Z79.01 Long term (current) use of anticoagulants; Z99.3 Dependence on wheelchair; Z95.5 Presence of coronary angioplasty implant and graft; Z93.2 Ileostomy status; Z88.8 Allergy status to other drugs, medicaments and biological substances; Z88.1 Allergy status to other antibiotic agents
CPT/HCPCS: 36415; 36569; 70553; 71045; 72156; 72158; 75635; 75710; 76937; 77001; 80048; 80053; 81003; 82306; 82310; 82550; 82607; 82746; 83735; 84132; 84439; 84443; 85014; 85018; 85025; 85520; 85610; 85651; 86038; 93922; 93926; 94640; 99285; A9585; J1100; J1644; J2405; J2704; J3010; J3490; J7620; Q9966; Q9967; C1751; C1757; J2270; J2440

== ENCOUNTER 2017-06-19 17:23 | Inpatient (IN) | payer MEDICAID ==
[~2017-06-19] VITALS: Ht 167.6 cm; Wt 74.2 kg
[~2017-06-19 17:23] MED LIST changes: +CYAN10005 PO; +ERGO500017 PO; +GABA300C PO; +IPRA3AMP NPPB; +POLY17PO5 PO; +SIMV20TA PO; +WARF2.5T73 PO
[2017-06-19] MEDS ORDERED: SODIUM CHLORIDE 0.9% 1,000ML IVBOLUS ONE (18:00)
[2017-06-19] MEDS ORDERED: LEVOFLOXACIN/PMX 750MG/150ML 150 ML IVPB ONE (18:00)
[2017-06-19] MEDS ORDERED: SODIUM CHLORIDE FLUSH 10ML SYR IVF ONE (18:00)
[2017-06-19] MEDS ORDERED: ACETAMINOPHEN 500 MG TABLET PO ONE (18:00)
[2017-06-19] MEDS ORDERED: LEVOFLOXACIN/PMX 750MG/150ML 150 ML ONE (18:32)
[2017-06-19] MEDS ORDERED: ACETAMINOPHEN 500 MG TABLET ONE (18:32)
[2017-06-19 18:42] LABS: BASOPHILS # (AUTO) 0.03 x10^3/uL (0-0.1); BASOPHILS % (AUTO) 0 % (0-1); EOSINOPHILS # (AUTO) 0.19 x10^3/uL (0-0.4); EOSINOPHILS % (AUTO) 1 % (1-7); LYMPHOCYTES # (AUTO) 0.81 x10^3/uL (1-3.4); LYMPHOCYTES % (AUTO) 6 % (22-44); MD NO; MEAN CORPUSCULAR HEMOGLOBIN 27.8 pg (27.5-34.5); MEAN CORPUSCULAR HGB CONC 32.6 g/dL (33.2-36.2); MEAN CORPUSCULAR VOLUME 85.1 fL (81-97); MEAN PLATELET VOLUME 8.3 fL (7.4-10.4); MONOCYTES # (AUTO) 0.88 x10^3/uL (0.2-0.8); MONOCYTES % (AUTO) 6 % (2-9); NEUTROPHILS # (AUTO) 12.91 x10^3/uL (1.8-6.8); NEUTROPHILS % (AUTO) 87 % (42-75); PLATELET COUNT 362 x10^3/uL (130-400); RED CELL DISTRIBUTION WIDTH 20.3 % (9.4-14.8)
[2017-06-19 18:54] LABS: ALANINE AMINOTRANSFERASE 26 U/L (12-78); ANION GAP 9 mmol/L (5-15); CALCIUM 9.3 mg/dL (8.5-10.1); CHLORIDE 101 mmol/L (98-107); CREATININE 1.07 mg/dL (0.7-1.3)
[2017-06-19 18:56] LABS: ALKALINE PHOSPHATASE 94 U/L (45-117); BILIRUBIN,TOTAL 0.3 mg/dL (0.2-1.0); TOTAL PROTEIN 7.7 g/dL (6.4-8.2)
[2017-06-19] MEDS ORDERED: WARF4TAB7 PO (19:11)
[2017-06-19] MEDS ORDERED: CARV6.252 PO (19:11)
[2017-06-19] MEDS ORDERED: TRAZ50TA18 PO (19:11)
[2017-06-19] MEDS ORDERED: TIOT18CA INH (19:11)
[2017-06-19] MEDS ORDERED: ONDANSETRON 2MG/ML, 2ML IVPush PRN (21:30)
[2017-06-19] MEDS ORDERED: BISACODYL 10 MG SUPP PR PRN (21:30)
[2017-06-19] MEDS ORDERED: morphine SULFATE 10 MG/ML, 1ML IVPush PRN (21:30)
[2017-06-19] MEDS ORDERED: CEFTRIAXONE PMX 2GM/50ML 50 ML IV SCH (21:30)
[2017-06-19] MEDS ORDERED: hydrALAzine 20 MG/ML, 1ML IVPush PRN (21:30)
[2017-06-19] MEDS ORDERED: AZITHROMYCIN 500 MG in SODIUM CHLORIDE 0.9% 250 ML IV SCH (21:30)
[2017-06-19] MEDS ORDERED: ENALAPRILAT 1.25 MG/ML, 2ML IVPush PRN (21:30)
[2017-06-19] MEDS ORDERED: ALBUTEROL/IPRATROPIUM 2.5MG/0.5MG, 3 ML NPPB SCH (21:30)
[2017-06-19] MEDS ORDERED: POLYETHYLENE GLYCOL 17 GM PACKET PO PRN (21:30)
[2017-06-19] MEDS ORDERED: ACETAMINOPHEN 325 MG TABLET PO PRN (21:30)
[2017-06-19] MEDS ORDERED: NICOTINE 14MG/24 HR PATCH.TD24 ONE (21:52)
[2017-06-19] MEDS ORDERED: methylPREDNISolone SOD SUCC 125 MG/2 ML ONE ×2 (21:52→22:55)
[2017-06-19] MEDS ORDERED: CEFTRIAXONE PMX 2GM/50ML 50 ML ONE (21:53)
[2017-06-19] MEDS: GABAPENTIN 300 MG CAPSULE PO SCH (22:00)
[2017-06-19] MEDS: SODIUM CHLORIDE 0.9% 1,000 ML IV SCH (22:00)
[2017-06-19] MEDS: methylPREDNISolone SOD SUCC 125 MG/2 ML IVPush SCH (22:01)
[2017-06-19] MEDS: NICOTINE 14MG/24 HR PATCH.TD24 TD SCH (22:01)
[2017-06-19 22:11] LABS: FREE T4 (FREE THYROXINE) 1.09 ng/dL (0.76-1.46); THYROID STIMULATING HORMONE 0.318 mIU/L (0.358-3.740)
[2017-06-19 22:15] LABS: HEMOGLOBIN A1C 5.5 % (4.2-6.3)
[2017-06-19] MEDS: TRAZODONE 50MG TABLET PO SCH (22:34)
[2017-06-19] MEDS: ERGOCALCIFEROL 50,000 UNIT CAPSULE PO SCH (22:34)
[2017-06-19] MEDS ORDERED: GABAPENTIN 300 MG CAPSULE ONE (22:38)
[2017-06-19] MEDS ORDERED: ALBUTEROL/IPRATROPIUM 2.5MG/0.5MG, 3 ML ONE ×2 (22:55→23:16)
[2017-06-19] MEDS ORDERED: methylPREDNISolone SOD SUCC 125 MG/2 ML IVPush SCH (23:00)
[2017-06-19] MEDS ORDERED: methylPREDNISolone SOD SUCC 125 MG/2 ML IVPush ONE (23:00)
[2017-06-19] MEDS ORDERED: DIPHENHYDRAMINE 50 MG/ML, 1ML IVPush ONE (23:00)
[2017-06-19] MEDS ORDERED: FAMOTIDINE 20 MG/2 ML IVPush ONE (23:00)
[2017-06-19] MEDS: PROPOFOL 100 ML IV PRN (23:47)
[2017-06-20 00:27] LABS: MICROSCOPIC INDICATED
[2017-06-20 00:50] LABS: CULTURE INDICATED? NO
[2017-06-20 01:20] VITALS: BP 140/99
[2017-06-20] MEDS: ALBUTEROL/IPRATROPIUM 2.5MG/0.5MG, 3 ML INLINE SCH ×6 (02:40→22:46)
[2017-06-20] MEDS: PROPOFOL 100 ML IV PRN ×5 (03:57→22:52)
[2017-06-20] MEDS: methylPREDNISolone SOD SUCC 125 MG/2 ML IVPush SCH ×4 (04:01→21:22)
[2017-06-20 04:26] LABS: MEAN CORPUSCULAR HEMOGLOBIN 27.4 pg (27.5-34.5); MEAN CORPUSCULAR VOLUME 85.5 fL (81-97); MEAN PLATELET VOLUME 8.2 fL (7.4-10.4); PLATELET COUNT 280 x10^3/uL (130-400); RED BLOOD COUNT 3.78 x10^6/uL (4.38-5.82); RED CELL DISTRIBUTION WIDTH 20.5 % (9.4-14.8)
[2017-06-20 04:29] LABS: INTERNATIONAL NORMALIZED RATIO 1.43 (0.93-1.1); PROTHROMBIN TIME 14.6 Seconds (9.6-11.5)
[2017-06-20 04:35] LABS: ANION GAP 7 mmol/L (5-15); CALCIUM 8.1 mg/dL (8.5-10.1); CHLORIDE 107 mmol/L (98-107)
[2017-06-20 04:38] LABS: ALANINE AMINOTRANSFERASE 29 U/L (12-78); ALKALINE PHOSPHATASE 74 U/L (45-117); BILIRUBIN,TOTAL 0.6 mg/dL (0.2-1.0); CHOL/HDL RATIO 5.2; CHOLESTEROL, TOTAL 119 mg/dL (140-239); CREATININE 0.94 mg/dL (0.7-1.3); HDL CHOL % 19 % (26-37); HDL CHOLESTEROL (DIRECT) 23 mg/dL (40-60); LDL CHOLESTEROL,CALCULATED 62 mg/dL (54-169); LDL/HDL RATIO 2.7 (0.5-3.0); TOTAL PROTEIN 6.2 g/dL (6.4-8.2); TRIGLYCERIDES 168 mg/dL (50-200); VLDL CHOLESTEROL 34 mg/dL (0-25)
[2017-06-20 05:06] LABS: BASOPHILS # (AUTO) 0.01 x10^3/uL (0-0.1); BASOPHILS % (AUTO) 0 % (0-1); EOSINOPHILS # (AUTO) 0.01 x10^3/uL (0-0.4); EOSINOPHILS % (AUTO) 0 % (1-7); LYMPHOCYTES # (AUTO) 0.27 x10^3/uL (1-3.4); LYMPHOCYTES % (AUTO) 2 % (22-44); MD SCAN; MONOCYTES # (AUTO) 0.18 x10^3/uL (0.2-0.8); MONOCYTES % (AUTO) 1 % (2-9); NEUTROPHILS # (AUTO) 14.75 x10^3/uL (1.8-6.8); NEUTROPHILS % (AUTO) 97 % (42-75)
[2017-06-20] MEDS: SODIUM CHLORIDE 0.9% 1,000 ML IV SCH ×2 (05:42→14:15)
[2017-06-20] MEDS: CEFTRIAXONE PMX 1GM/50ML 50 ML IV SCH (08:29)
[2017-06-20] MEDS: AZITHROMYCIN 500 MG in SODIUM CHLORIDE 0.9% 250 ML IV SCH (09:15)
[2017-06-20 09:52] LABS: RAPID INFLUENZA A Negative (Negative); RAPID INFLUENZA B Negative (Negative)
[2017-06-20] MEDS: GABAPENTIN 300 MG CAPSULE PO SCH ×3 (10:23→21:23)
[2017-06-20] MEDS: FAMOTIDINE 20 MG TABLET PO SCH ×2 (10:23→21:23)
[2017-06-20] MEDS ORDERED: SUCCINYLCHOLINE 20 MG/ML, 10ML ONE (10:40)
[2017-06-20] MEDS ORDERED: VECURONIUM 10 MG ONE (10:40)
[2017-06-20] MEDS ORDERED: ETOMIDATE 20 MG/10 ML ONE (10:40)
[2017-06-20] MEDS ORDERED: PROPOFOL 10 MG/ML, 100ML IV ONE (10:40)
[2017-06-20] MEDS ORDERED: WARFARIN 3 MG TABLET PO-COUM ONE (13:00)
[2017-06-20] MEDS: SENNA/DOCUSATE TABLET PO SCH (14:09)
[2017-06-20] MEDS ORDERED: LEVOFLOXACIN/PMX 750MG/150ML 150 ML IV SCH (18:00)
[2017-06-20] MEDS: NICOTINE 14MG/24 HR PATCH.TD24 TD SCH (20:52)
[2017-06-20] MEDS: TRAZODONE 50MG TABLET PO SCH (21:23)
[2017-06-21] MEDS: ALBUTEROL/IPRATROPIUM 2.5MG/0.5MG, 3 ML INLINE SCH ×2 (02:41→06:44)
[2017-06-21] MEDS: methylPREDNISolone SOD SUCC 125 MG/2 ML IVPush SCH ×4 (03:25→17:08)
[2017-06-21 05:15] LABS: INTERNATIONAL NORMALIZED RATIO 1.88 (0.93-1.1); PROTHROMBIN TIME 19.1 Seconds (9.6-11.5)
[2017-06-21] MEDS ORDERED: LIDOCAINE-MPF 1%, 2ML ENDO PRN (06:00)
[2017-06-21] MEDS ORDERED: LIDOCAINE-MPF 1%, 2ML ONE (06:46)
[2017-06-21] MEDS: CEFTRIAXONE PMX 1GM/50ML 50 ML IV SCH (07:53)
[2017-06-21 08:30] LABS: MEAN CORPUSCULAR HEMOGLOBIN 27.3 pg (27.5-34.5); MEAN CORPUSCULAR HGB CONC 31.9 g/dL (33.2-36.2); MEAN CORPUSCULAR VOLUME 85.8 fL (81-97); MEAN PLATELET VOLUME 7.9 fL (7.4-10.4); PLATELET COUNT 294 x10^3/uL (130-400); RED BLOOD COUNT 3.54 x10^6/uL (4.38-5.82); RED CELL DISTRIBUTION WIDTH 20.7 % (9.4-14.8)
[2017-06-21 08:37] LABS: ANION GAP 9 mmol/L (5-15); CALCIUM 7.8 mg/dL (8.5-10.1); CHLORIDE 113 mmol/L (98-107); CREATININE 0.92 mg/dL (0.7-1.3)
[2017-06-21] MEDS: GABAPENTIN 300 MG CAPSULE PO SCH ×3 (08:38→21:11)
[2017-06-21] MEDS: FAMOTIDINE 20 MG TABLET PO SCH ×2 (08:38→21:11)
[2017-06-21] MEDS: SENNA/DOCUSATE TABLET PO SCH ×2 (08:38→08:40)
[2017-06-21] MEDS: AZITHROMYCIN 500 MG in SODIUM CHLORIDE 0.9% 250 ML IV SCH (08:46)
[2017-06-21 08:51] LABS: MD YES
[2017-06-21 08:52] LABS: BANDS%(MANUAL) 4 % (0-7); LYMPHS% (MANUAL) 3 % (22-44); MONOS% (MANUAL) 5 % (2-9); SEGS% (MANUAL) 88 % (42-75)
[2017-06-21 08:55] LABS: <PLATELET ESTIMATE> ADEQUATE; <PLT MORPHOLOGY> NORMAL PLT MORPH; POLYCHROMASIA 1+
[2017-06-21 08:56] LABS: ANISOCYTOSIS 1+; HYPOCHROMIA 1+
[2017-06-21] MEDS ORDERED: FUROSEMIDE 20 MG/2 ML ONE (09:43)
[2017-06-21] MEDS: OXYcodone IR 5MG TABLET PO PRN ×2 (09:51→17:07)
[2017-06-21] MEDS: ALBUTEROL/IPRATROPIUM 2.5MG/0.5MG, 3 ML NPPB SCH ×2 (10:00→14:23)
[2017-06-21] MEDS ORDERED: FUROSEMIDE 20 MG/2 ML IV ONE (10:00)
[2017-06-21] MEDS ORDERED: WARFARIN 3 MG TABLET PO-COUM ONE (18:00)
[2017-06-21] MEDS: NICOTINE 14MG/24 HR PATCH.TD24 TD SCH (21:11)
[2017-06-21] MEDS: TRAZODONE 50MG TABLET PO SCH (21:11)
[2017-06-22] MEDS: methylPREDNISolone SOD SUCC 125 MG/2 ML IVPush SCH ×2 (00:12→04:31)
[2017-06-22] MEDS: OXYcodone IR 5MG TABLET PO PRN ×3 (04:31→17:48)
[2017-06-22 04:41] LABS: MEAN CORPUSCULAR HEMOGLOBIN 27.3 pg (27.5-34.5); MEAN CORPUSCULAR HGB CONC 31.9 g/dL (33.2-36.2); MEAN CORPUSCULAR VOLUME 85.6 fL (81-97); MEAN PLATELET VOLUME 7.6 fL (7.4-10.4); PLATELET COUNT 311 x10^3/uL (130-400); RED BLOOD COUNT 3.71 x10^6/uL (4.38-5.82); RED CELL DISTRIBUTION WIDTH 20.4 % (9.4-14.8)
[2017-06-22 04:49] LABS: ANION GAP 6 mmol/L (5-15); CALCIUM 8.1 mg/dL (8.5-10.1); CHLORIDE 107 mmol/L (98-107)
[2017-06-22 05:06] LABS: INTERNATIONAL NORMALIZED RATIO 1.9 (0.93-1.1); PROTHROMBIN TIME 19.3 Seconds (9.6-11.5)
[2017-06-22 05:48] LABS: BASOPHILS % (AUTO) 0 % (0-1); EOSINOPHILS % (AUTO) 0 % (1-7); LYMPHOCYTES % (AUTO) 2 % (22-44); MD SCAN; MONOCYTES # (AUTO) 0.06 x10^3/uL (0.2-0.8); MONOCYTES % (AUTO) 0 % (2-9); NEUTROPHILS # (AUTO) 25.42 x10^3/uL (1.8-6.8); NEUTROPHILS % (AUTO) 98 % (42-75)
[2017-06-22] MEDS: CEFTRIAXONE PMX 1GM/50ML 50 ML IV SCH (07:34)
[2017-06-22] MEDS: ALBUTEROL/IPRATROPIUM 2.5MG/0.5MG, 3 ML NPPB SCH ×5 (07:35→18:37)
[2017-06-22] MEDS: AZITHROMYCIN 500 MG in SODIUM CHLORIDE 0.9% 250 ML IV SCH (08:16)
[2017-06-22] MEDS: GABAPENTIN 300 MG CAPSULE PO SCH ×3 (08:16→20:34)
[2017-06-22] MEDS: SENNA/DOCUSATE TABLET PO SCH (08:16)
[2017-06-22] MEDS: FAMOTIDINE 20 MG TABLET PO SCH ×2 (08:16→20:34)
[2017-06-22] MEDS ORDERED: WARFARIN 7.5 MG TABLET PO-COUM ONE (18:00)
[2017-06-22] MEDS: NICOTINE 14MG/24 HR PATCH.TD24 TD SCH (19:32)
[2017-06-22] MEDS: TRAZODONE 50MG TABLET PO SCH (20:34)
[2017-06-23 05:08] LABS: INTERNATIONAL NORMALIZED RATIO 3.08 (0.93-1.1); PROTHROMBIN TIME 31.3 Seconds (9.6-11.5)
[2017-06-23 05:12] LABS: ALANINE AMINOTRANSFERASE 22 U/L (12-78); ALBUMIN 2.9 g/dL (3.4-5.0); ANION GAP 6 mmol/L (5-15); CALCIUM 7.9 mg/dL (8.5-10.1); CHLORIDE 104 mmol/L (98-107); CREATININE 0.72 mg/dL (0.7-1.3)
[2017-06-23 05:14] LABS: ALKALINE PHOSPHATASE 71 U/L (45-117); BILIRUBIN,TOTAL 0.1 mg/dL (0.2-1.0); TOTAL PROTEIN 5.8 g/dL (6.4-8.2)
[2017-06-23 05:49] LABS: MD YES; MEAN CORPUSCULAR HEMOGLOBIN 27.5 pg (27.5-34.5); MEAN CORPUSCULAR HGB CONC 32.2 g/dL (33.2-36.2); MEAN CORPUSCULAR VOLUME 85.6 fL (81-97); MEAN PLATELET VOLUME 8.2 fL (7.4-10.4); PLATELET COUNT 262 x10^3/uL (130-400); RED BLOOD COUNT 3.71 x10^6/uL (4.38-5.82); RED CELL DISTRIBUTION WIDTH 20.2 % (9.4-14.8)
[2017-06-23 05:51] LABS: LYMPH#(MANUAL) 1.16 x10^3/uL (1-3.4); LYMPHS% (MANUAL) 5 % (22-44); MONOS#(MANUAL) 0.92 x10^3/uL (0.3-2.7); MONOS% (MANUAL) 4 % (2-9); SEG#(MANUAL) 21.02 x10^3/uL (1.8-6.8); SEGS% (MANUAL) 91 % (42-75)
[2017-06-23 05:52] LABS: <PLATELET ESTIMATE> ADEQUATE; <PLT MORPHOLOGY> NORMAL PLT MORPH; ANISOCYTOSIS 1+; POLYCHROMASIA 1+
[2017-06-23] MEDS: ALBUTEROL/IPRATROPIUM 2.5MG/0.5MG, 3 ML NPPB SCH ×5 (07:00→22:15)
[2017-06-23] MEDS ORDERED: CEFTRIAXONE 1,000 MG in SODIUM CHLORIDE 0.9% 50 ML IV SCH (07:30)
[2017-06-23] MEDS: AZITHROMYCIN 500 MG in SODIUM CHLORIDE 0.9% 250 ML IV SCH (07:39)
[2017-06-23] MEDS: OXYcodone IR 5MG TABLET PO PRN ×3 (07:39→20:26)
[2017-06-23] MEDS: SENNA/DOCUSATE TABLET PO SCH (09:00)
[2017-06-23] MEDS: GABAPENTIN 300 MG CAPSULE PO SCH ×3 (09:17→20:26)
[2017-06-23] MEDS: FAMOTIDINE 20 MG TABLET PO SCH (09:17)
[2017-06-23 10:32] VITALS: BP 137/97
[2017-06-23 13:58] VITALS: BP 146/89
[2017-06-23] MEDS: methylPREDNISolone SOD SUCC 40 MG/ML IV SCH ×2 (14:34→22:32)
[2017-06-23] MEDS ORDERED: WARFARIN 3 MG TABLET PO-COUM ONE (18:00)
[2017-06-23 20:13] VITALS: BP 141/90
[2017-06-23] MEDS: TRAZODONE 50MG TABLET PO SCH (20:26)
[2017-06-23] MEDS: NICOTINE 14MG/24 HR PATCH.TD24 TD SCH (21:30)
[2017-06-24 00:58] VITALS: BP 125/83
[2017-06-24] MEDS: OXYcodone IR 5MG TABLET PO PRN ×5 (01:19→21:42)
[2017-06-24 05:46] LABS: INTERNATIONAL NORMALIZED RATIO 3.9 (0.93-1.1); PROTHROMBIN TIME 39.5 Seconds (9.6-11.5)
[2017-06-24 05:49] LABS: MEAN CORPUSCULAR HEMOGLOBIN 27.1 pg (27.5-34.5); MEAN CORPUSCULAR HGB CONC 32.2 g/dL (33.2-36.2); MEAN CORPUSCULAR VOLUME 84.3 fL (81-97); MEAN PLATELET VOLUME 7.8 fL (7.4-10.4); PLATELET COUNT 291 x10^3/uL (130-400); RED BLOOD COUNT 3.89 x10^6/uL (4.38-5.82); RED CELL DISTRIBUTION WIDTH 19.6 % (9.4-14.8)
[2017-06-24 05:53] LABS: CHLORIDE 97 mmol/L (98-107)
[2017-06-24 06:08] LABS: ALANINE AMINOTRANSFERASE 44 U/L (12-78); ALBUMIN 3.1 g/dL (3.4-5.0); ALKALINE PHOSPHATASE 79 U/L (45-117); ANION GAP 6 mmol/L (5-15); BILIRUBIN,TOTAL 0.3 mg/dL (0.2-1.0); CALCIUM 8.3 mg/dL (8.5-10.1); CREATININE 0.85 mg/dL (0.7-1.3); TOTAL PROTEIN 5.9 g/dL (6.4-8.2)
[2017-06-24 06:26] LABS: BASOPHILS % (AUTO) 0 % (0-1); EOSINOPHILS % (AUTO) 0 % (1-7); LYMPHOCYTES # (AUTO) 0.41 x10^3/uL (1-3.4); LYMPHOCYTES % (AUTO) 3 % (22-44); MD SCAN; MONOCYTES # (AUTO) 0.25 x10^3/uL (0.2-0.8); MONOCYTES % (AUTO) 2 % (2-9); NEUTROPHILS % (AUTO) 96 % (42-75)
[2017-06-24] MEDS: methylPREDNISolone SOD SUCC 40 MG/ML IV SCH (06:27)
[2017-06-24 07:53] VITALS: BP 145/97
[2017-06-24] MEDS: ALBUTEROL/IPRATROPIUM 2.5MG/0.5MG, 3 ML NPPB SCH ×4 (08:01→18:20)
[2017-06-24] MEDS: AZITHROMYCIN 500 MG in SODIUM CHLORIDE 0.9% 250 ML IV SCH (08:46)
[2017-06-24] MEDS: SENNA/DOCUSATE TABLET PO SCH (08:46)
[2017-06-24] MEDS: GABAPENTIN 300 MG CAPSULE PO SCH ×3 (08:46→21:42)
[2017-06-24] MEDS: CEFTRIAXONE 1,000 MG in SODIUM CHLORIDE 0.9% 50 ML IV SCH (12:08)
[2017-06-24 13:20] VITALS: BP 134/90
[2017-06-24] MEDS ORDERED: HOLD MEDICATION WARFARIN MC SCH (18:00)
[2017-06-24 20:00] VITALS: BP 141/95
[2017-06-24] MEDS: TRAZODONE 50MG TABLET PO SCH (21:41)
[2017-06-24] MEDS: NICOTINE 14MG/24 HR PATCH.TD24 TD SCH (21:42)
[2017-06-25] MEDS: OXYcodone IR 5MG TABLET PO PRN ×5 (01:48→20:57)
[2017-06-25 02:00] VITALS: BP 149/91
[2017-06-25 05:39] LABS: INTERNATIONAL NORMALIZED RATIO 2.91 (0.93-1.1); PROTHROMBIN TIME 29.6 Seconds (9.6-11.5)
[2017-06-25 05:44] LABS: MEAN CORPUSCULAR HEMOGLOBIN 27.3 pg (27.5-34.5); MEAN CORPUSCULAR HGB CONC 32.4 g/dL (33.2-36.2); MEAN CORPUSCULAR VOLUME 84.2 fL (81-97); MEAN PLATELET VOLUME 7.5 fL (7.4-10.4); PLATELET COUNT 341 x10^3/uL (130-400); RED BLOOD COUNT 3.96 x10^6/uL (4.38-5.82); RED CELL DISTRIBUTION WIDTH 20.1 % (9.4-14.8)
[2017-06-25 06:41] LABS: BASOPHILS # (AUTO) 0.02 x10^3/uL (0-0.1); BASOPHILS % (AUTO) 0 % (0-1); EOSINOPHILS # (AUTO) 0.05 x10^3/uL (0-0.4); EOSINOPHILS % (AUTO) 0 % (1-7); LYMPHOCYTES % (AUTO) 8 % (22-44); MD SCAN; MONOCYTES # (AUTO) 1.31 x10^3/uL (0.2-0.8); MONOCYTES % (AUTO) 6 % (2-9); NEUTROPHILS # (AUTO) 17.63 x10^3/uL (1.8-6.8); NEUTROPHILS % (AUTO) 86 % (42-75)
[2017-06-25] MEDS: ALBUTEROL/IPRATROPIUM 2.5MG/0.5MG, 3 ML NPPB SCH ×4 (07:20→14:50)
[2017-06-25] MEDS: AZITHROMYCIN 500 MG in SODIUM CHLORIDE 0.9% 250 ML IV SCH ×2 (08:15→11:33)
[2017-06-25] MEDS: SENNA/DOCUSATE TABLET PO SCH (08:16)
[2017-06-25 09:30] VITALS: BP 141/91
[2017-06-25] MEDS: GABAPENTIN 300 MG CAPSULE PO SCH ×3 (10:51→20:57)
[2017-06-25] MEDS: CEFTRIAXONE 1,000 MG in SODIUM CHLORIDE 0.9% 50 ML IV SCH (12:43)
[2017-06-25 13:55] VITALS: BP 153/110
[2017-06-25] MEDS ORDERED: WARFARIN 2 MG TABLET PO-COUM ONE (18:00)
[2017-06-25 20:00] VITALS: BP 131/89
[2017-06-25] MEDS: TRAZODONE 50MG TABLET PO SCH (20:57)
[2017-06-25] MEDS: NICOTINE 14MG/24 HR PATCH.TD24 TD SCH (21:00)
[2017-06-26 01:10] VITALS: BP 130/95
[2017-06-26 05:23] LABS: INTERNATIONAL NORMALIZED RATIO 1.8 (0.93-1.1); PROTHROMBIN TIME 18.5 Seconds (9.6-11.5)
[2017-06-26 06:42] VITALS: BP 140/95
[2017-06-26] MEDS: SENNA/DOCUSATE TABLET PO SCH (07:07)
[2017-06-26] MEDS: ALBUTEROL/IPRATROPIUM 2.5MG/0.5MG, 3 ML NPPB SCH ×4 (07:30→18:39)
[2017-06-26] MEDS: OXYcodone IR 5MG TABLET PO PRN ×2 (08:38→12:36)
[2017-06-26] MEDS: GABAPENTIN 300 MG CAPSULE PO SCH ×3 (08:39→21:27)
[2017-06-26] MEDS: AZITHROMYCIN 500 MG in SODIUM CHLORIDE 0.9% 250 ML IV SCH (11:27)
[2017-06-26] MEDS: CEFTRIAXONE 1,000 MG in SODIUM CHLORIDE 0.9% 50 ML IV SCH (12:36)
[2017-06-26 14:00] VITALS: BP 136/98
[2017-06-26] MEDS ORDERED: WARFARIN 3 MG TABLET PO-COUM ONE (18:00)
[2017-06-26 20:00] VITALS: BP 145/88
[2017-06-26] MEDS: TRAZODONE 50MG TABLET PO SCH (21:27)
[2017-06-26] MEDS: ERGOCALCIFEROL 50,000 UNIT CAPSULE PO SCH (21:27)
[2017-06-26] MEDS: NICOTINE 14MG/24 HR PATCH.TD24 TD SCH (21:27)
[2017-06-27 02:00] VITALS: BP 150/97
[2017-06-27 05:27] LABS: INTERNATIONAL NORMALIZED RATIO 2.09 (0.93-1.1); PROTHROMBIN TIME 21.4 Seconds (9.6-11.5)
[2017-06-27] MEDS: SENNA/DOCUSATE TABLET PO SCH (07:24)
[2017-06-27] MEDS: ALBUTEROL/IPRATROPIUM 2.5MG/0.5MG, 3 ML NPPB SCH (07:50)
[2017-06-27] MEDS: GABAPENTIN 300 MG CAPSULE PO SCH ×2 (08:49→16:35)
[2017-06-27 09:00] VITALS: BP 133/88
[2017-06-27] MEDS ORDERED: ERGO500017 PO (14:08)
[2017-06-27] MEDS ORDERED: PRED20TA PO (14:08)
[2017-06-27] MEDS ORDERED: NICO-486 TD (14:08)
[2017-06-27 15:30] VITALS: BP 162/116
[2017-06-27 17:20] VITALS: BP 159/89
[2017-06-27] MEDS ORDERED: WARFARIN 5 MG TABLET PO-COUM ONE (18:00)
[2017-06-27] MEDS ORDERED: ALBUTEROL/IPRATROPIUM 2.5MG/0.5MG, 3 ML NPPB SCH (21:00)
== END 2017-06-27 17:47 | DRG 871 ==
LOC: ED 18:09 → EDIP 21:53 → CCU 06-20 01:05 → 4WST 06-23 10:21
PROVIDERS: ADMIT Internal Medicine; ATTEND Internal Medicine
PROC: 5A1945Z Respiratory Ventilation, 24-96 Consecutive Hours (ICD-10-PCS; 2017-06-19)
PROC: 0BH17EZ Insertion of Endotracheal Airway into Trachea, Via Natural or Artificial Opening (ICD-10-PCS; 2017-06-19)
PROC: 0T9B70Z Drainage of Bladder with Drainage Device, Via Natural or Artificial Opening (ICD-10-PCS; principal; 2017-06-20)
DX: A41.9 Sepsis, unspecified organism (principal); J15.9 Unspecified bacterial pneumonia; J96.21 Acute and chronic respiratory failure with hypoxia; J44.0 Chronic obstructive pulmonary disease with (acute) lower respiratory infection; D68.69 Other thrombophilia; D68.8 Other specified coagulation defects; Z99.81 Dependence on supplemental oxygen; J44.1 Chronic obstructive pulmonary disease with (acute) exacerbation; E55.9 Vitamin D deficiency, unspecified; F17.210 Nicotine dependence, cigarettes, uncomplicated; G62.9 Polyneuropathy, unspecified; G89.4 Chronic pain syndrome; I12.9 Hypertensive chronic kidney disease with stage 1 through stage 4 chronic kidney disease, or unspecified chronic kidney disease; I25.10 Atherosclerotic heart disease of native coronary artery without angina pectoris; I25.2 Old myocardial infarction; I73.9 Peripheral vascular disease, unspecified; I77.1 Stricture of artery; R65.20 Severe sepsis without septic shock; N18.9 Chronic kidney disease, unspecified; T45.515A Adverse effect of anticoagulants, initial encounter; Z59.0 Homelessness; Z83.3 Family history of diabetes mellitus; Z80.9 Family history of malignant neoplasm, unspecified; Z86.711 Personal history of pulmonary embolism; Z86.718 Personal history of other venous thrombosis and embolism; Z95.5 Presence of coronary angioplasty implant and graft; R26.81 Unsteadiness on feet; G43.909 Migraine, unspecified, not intractable, without status migrainosus; Z88.6 Allergy status to analgesic agent; Z88.1 Allergy status to other antibiotic agents; Z91.048 Other nonmedicinal substance allergy status
CPT/HCPCS: 31500; 36415; 36600; 51702; 71045; 74018; 80048; 80053; 80061; 81001; 82803; 83036; 83605; 83735; 84439; 84443; 85025; 85610; 87040; 87070; 87081; 87205; 87400; 93005; 94002; 94003; 94150; 94640; 99291; J0456; J0696; J1956; J2704; J3490; J7620; J0330; J0360; J1940; J2920; J2930; J7030; J7050; J7512

== ENCOUNTER 2017-07-26 18:24 | Inpatient (IN) | payer MEDICAID ==
[~2017-07-26] VITALS: Ht 160 cm; Wt 82.0 kg
[~2017-07-26 18:24] MED LIST changes: +CARV6.252 PO; +NICO-486 TD; +PRED20TA PO; +TRAZ50TA18 PO; +WARF-36 PO; +WARF4TAB7 PO; -WARF5TAB7 PO
[2017-07-26] MEDS ORDERED: ALBUTEROL/IPRATROPIUM 2.5MG/0.5MG, 3 ML ONE (19:24)
[2017-07-26] MEDS ORDERED: ALBUTEROL/IPRATROPIUM 2.5MG/0.5MG, 3 ML NPPB ONE (19:30)
[2017-07-26 19:52] LABS: MEAN CORPUSCULAR HEMOGLOBIN 25.5 pg (27.5-34.5); MEAN CORPUSCULAR HGB CONC 31.9 g/dL (33.2-36.2); MEAN CORPUSCULAR VOLUME 79.8 fL (81-97); MEAN PLATELET VOLUME 8.2 fL (7.4-10.4); PLATELET COUNT 341 x10^3/uL (130-400); RED BLOOD COUNT 4.82 x10^6/uL (4.38-5.82); RED CELL DISTRIBUTION WIDTH 21.9 % (9.4-14.8)
[2017-07-26 19:54] LABS: ALANINE AMINOTRANSFERASE 20 U/L (12-78); ALBUMIN 3.1 g/dL (3.4-5.0); ANION GAP 10 mmol/L (5-15); CALCIUM 9.2 mg/dL (8.5-10.1); CHLORIDE 101 mmol/L (98-107); CREATININE 1.02 mg/dL (0.7-1.3)
[2017-07-26 19:57] LABS: INTERNATIONAL NORMALIZED RATIO 1.32 (0.93-1.1); PROTHROMBIN TIME 13.5 Seconds (9.6-11.5)
[2017-07-26 19:58] LABS: ALKALINE PHOSPHATASE 88 U/L (45-117); BILIRUBIN,TOTAL 0.2 mg/dL (0.2-1.0); TOTAL PROTEIN 7.2 g/dL (6.4-8.2)
[2017-07-26 20:00] LABS: TROPONIN I < 0.015 ng/mL (0.000-0.045)
[2017-07-26] MEDS ORDERED: SODIUM CHLORIDE 0.9% 1,000ML IVBOLUS ONE (20:00)
[2017-07-26 20:17] LABS: BASOPHILS # (AUTO) 0.06 x10^3/uL (0-0.1); BASOPHILS % (AUTO) 0 % (0-1); EOSINOPHILS # (AUTO) 0.18 x10^3/uL (0-0.4); EOSINOPHILS % (AUTO) 1 % (1-7); LYMPHOCYTES # (AUTO) 1.42 x10^3/uL (1-3.4); LYMPHOCYTES % (AUTO) 8 % (22-44); MD SCAN; MONOCYTES # (AUTO) 1.08 x10^3/uL (0.2-0.8); MONOCYTES % (AUTO) 6 % (2-9); NEUTROPHILS # (AUTO) 15.48 x10^3/uL (1.8-6.8); NEUTROPHILS % (AUTO) 85 % (42-75)
[2017-07-26] MEDS ORDERED: HEPARIN 5,000 UNITS/ML, 1ML ONE (20:26)
[2017-07-26] MEDS ORDERED: HEPARIN 25,000 UNITS/500ML PMX 500 ML ONE (20:26)
[2017-07-26] MEDS ORDERED: HEPARIN 5,000 UNITS/ML, 1ML IV ONE (20:30)
[2017-07-26] MEDS ORDERED: OMNIPAQUE 350 MG/ML, 100ML BOTTLE ONE (20:47)
[2017-07-26] MEDS ORDERED: HYDROcodone/APAP 10/325 MG TABLET PO ONE (21:00)
[2017-07-26] MEDS ORDERED: PRED20TA PO (21:01)
[2017-07-26] MEDS ORDERED: BREO (21:01)
[2017-07-26] MEDS ORDERED: HYDROcodone/APAP 10/325 MG TABLET ONE (21:10)
[2017-07-26] MEDS ORDERED: OXYcodone IR 5MG TABLET ONE (21:14)
[2017-07-26] MEDS: HEPARIN 25,000 UNITS/500ML PMX 500 ML IV PRN (21:24)
[2017-07-26] MEDS ORDERED: OXYcodone IR 5MG TABLET PO ONE (21:30)
[2017-07-26] MEDS ORDERED: OXYcodone IR 5MG TABLET PO PRN (22:00)
[2017-07-26] MEDS ORDERED: ACETAMINOPHEN 325 MG TABLET PO PRN (22:00)
[2017-07-26] MEDS ORDERED: ONDANSETRON 2MG/ML, 2ML IVPush PRN (22:00)
[2017-07-26] MEDS: LACTULOSE 10 GM/15 ML UDC PO SCH (22:00)
[2017-07-26] MEDS ORDERED: hydrALAzine 20 MG/ML, 1ML IVPush PRN (22:00)
[2017-07-26 22:09] VITALS: BP 129/92
[2017-07-26] MEDS ORDERED: MORPHINE SULFATE 4 MG/ML, 1ML ONE (22:22)
[2017-07-26 22:27] VITALS: BP 129/92
[2017-07-26] MEDS: morphine SULFATE 10 MG/ML, 1ML IVPush PRN ×4 (22:30→23:58)
[2017-07-26] MEDS: GABAPENTIN 300 MG CAPSULE PO SCH (22:57)
[2017-07-26] MEDS: SODIUM CHLORIDE 0.9% 1,000 ML IV SCH (22:57)
[2017-07-26] MEDS: CARVEDILOL 6.25 MG TABLET PO SCH (22:57)
[2017-07-26 23:31] LABS: TROPONIN I < 0.015 ng/mL (0.000-0.045)
[2017-07-27 00:52] VITALS: BP 118/83
[2017-07-27] MEDS: TRAZODONE 100MG TABLET PO PRN ×2 (01:42→22:31)
[2017-07-27] MEDS ORDERED: MORPHINE SULFATE 4 MG/ML, 1ML ONE ×2 (04:17→04:18)
[2017-07-27] MEDS: morphine SULFATE 10 MG/ML, 1ML IVPush PRN (04:21)
[2017-07-27] MEDS: HEPARIN 5,000 UNITS/ML, 1ML IV PRN ×3 (04:31→20:02)
[2017-07-27 05:48] LABS: BASOPHILS # (AUTO) 0.05 x10^3/uL (0-0.1); BASOPHILS % (AUTO) 0 % (0-1); EOSINOPHILS # (AUTO) 0.28 x10^3/uL (0-0.4); EOSINOPHILS % (AUTO) 2 % (1-7); LYMPHOCYTES # (AUTO) 1.79 x10^3/uL (1-3.4); LYMPHOCYTES % (AUTO) 12 % (22-44); MD NO; MEAN CORPUSCULAR HEMOGLOBIN 25.4 pg (27.5-34.5); MEAN CORPUSCULAR HGB CONC 31.7 g/dL (33.2-36.2); MEAN PLATELET VOLUME 8.2 fL (7.4-10.4); MONOCYTES # (AUTO) 1.04 x10^3/uL (0.2-0.8); MONOCYTES % (AUTO) 7 % (2-9); NEUTROPHILS # (AUTO) 11.76 x10^3/uL (1.8-6.8); NEUTROPHILS % (AUTO) 79 % (42-75); PLATELET COUNT 356 x10^3/uL (130-400); RED BLOOD COUNT 4.76 x10^6/uL (4.38-5.82); RED CELL DISTRIBUTION WIDTH 21.8 % (9.4-14.8)
[2017-07-27 05:54] LABS: INTERNATIONAL NORMALIZED RATIO 1.38 (0.93-1.1); PROTHROMBIN TIME 14.1 Seconds (9.6-11.5)
[2017-07-27 06:02] LABS: CHLORIDE 103 mmol/L (98-107)
[2017-07-27 06:11] LABS: ALANINE AMINOTRANSFERASE 19 U/L (12-78); ALKALINE PHOSPHATASE 80 U/L (45-117); ANION GAP 9 mmol/L (5-15); BILIRUBIN,TOTAL 0.2 mg/dL (0.2-1.0); CALCIUM 8.8 mg/dL (8.5-10.1); CREATININE 1.03 mg/dL (0.7-1.3); TOTAL PROTEIN 6.8 g/dL (6.4-8.2); TROPONIN I < 0.015 ng/mL (0.000-0.045)
[2017-07-27] MEDS ORDERED: IPRATROPIUM 0.5 MG/2.5 ML INHA NPPB SCH (07:00)
[2017-07-27 07:54] VITALS: BP 112/87
[2017-07-27] MEDS ORDERED: ALBUTEROL/IPRATROPIUM 2.5MG/0.5MG, 3 ML ONE (07:54)
[2017-07-27] MEDS: ALBUTEROL/IPRATROPIUM 2.5MG/0.5MG, 3 ML NPPB SCH ×3 (08:00→20:00)
[2017-07-27] MEDS: GABAPENTIN 300 MG CAPSULE PO SCH ×3 (08:27→20:04)
[2017-07-27] MEDS: CARVEDILOL 6.25 MG TABLET PO SCH ×2 (08:27→20:04)
[2017-07-27] MEDS: OXYcodone/APAP 5/325MG TABLET PO PRN ×3 (08:27→22:31)
[2017-07-27] MEDS: LACTULOSE 10 GM/15 ML UDC PO SCH ×2 (08:27→20:05)
[2017-07-27] MEDS: FLUTICASONE/VILANTEROL 100-25MCG/INH INH SCH (11:23)
[2017-07-27] MEDS: SODIUM CHLORIDE 0.9% 1,000 ML IV SCH (13:53)
[2017-07-27 14:52] VITALS: BP 102/67
[2017-07-27] MEDS ORDERED: WARFARIN 5 MG TABLET PO-COUM SCH (18:00)
[2017-07-27 19:47] VITALS: BP 103/68
[2017-07-27] MEDS: HEPARIN 25,000 UNITS/500ML PMX 500 ML IV PRN (21:21)
[2017-07-28] MEDS: OXYcodone/APAP 5/325MG TABLET PO PRN ×4 (02:43→21:25)
[2017-07-28 02:52] LABS: ABSOLUTE RETICS # 0.025 x10^6/uL (0.5-1.5); RED BLOOD COUNT 4.21 x10^6/uL (4.38-5.82); RETICULOCYTE COUNT % 0.6 % (0.5-1.5)
[2017-07-28 02:53] LABS: BASOPHILS # (AUTO) 0.03 x10^3/uL (0-0.1); BASOPHILS % (AUTO) 0 % (0-1); EOSINOPHILS # (AUTO) 0.21 x10^3/uL (0-0.4); EOSINOPHILS % (AUTO) 2 % (1-7); LYMPHOCYTES % (AUTO) 14 % (22-44); MD NO; MEAN CORPUSCULAR HEMOGLOBIN 25.7 pg (27.5-34.5); MEAN CORPUSCULAR HGB CONC 31.8 g/dL (33.2-36.2); MEAN CORPUSCULAR VOLUME 80.9 fL (81-97); MEAN PLATELET VOLUME 7.7 fL (7.4-10.4); MONOCYTES # (AUTO) 0.69 x10^3/uL (0.2-0.8); MONOCYTES % (AUTO) 6 % (2-9); NEUTROPHILS # (AUTO) 9.61 x10^3/uL (1.8-6.8); NEUTROPHILS % (AUTO) 79 % (42-75); PLATELET COUNT 354 x10^3/uL (130-400); RED CELL DISTRIBUTION WIDTH 21.3 % (9.4-14.8)
[2017-07-28 02:58] VITALS: BP 118/78
[2017-07-28 03:02] LABS: ANION GAP 5 mmol/L (5-15); CALCIUM 8.6 mg/dL (8.5-10.1); CHLORIDE 109 mmol/L (98-107)
[2017-07-28 03:07] LABS: % IRON SATURATION 4 % (20-55); IRON LEVEL 13 mcg/dL (65-175); TOTAL IRON BINDING CAPACITY 312 mcg/dL (250-450)
[2017-07-28] MEDS: SODIUM CHLORIDE 0.9% 1,000 ML IV SCH ×2 (05:21→18:26)
[2017-07-28 08:13] VITALS: BP 107/76
[2017-07-28] MEDS: FLUTICASONE/VILANTEROL 100-25MCG/INH INH SCH (08:50)
[2017-07-28] MEDS: GABAPENTIN 300 MG CAPSULE PO SCH ×3 (08:51→21:08)
[2017-07-28] MEDS: LACTULOSE 10 GM/15 ML UDC PO SCH ×2 (08:51→21:00)
[2017-07-28] MEDS: CARVEDILOL 6.25 MG TABLET PO SCH ×2 (08:51→21:09)
[2017-07-28] MEDS: ALBUTEROL/IPRATROPIUM 2.5MG/0.5MG, 3 ML NPPB SCH ×4 (09:27→17:05)
[2017-07-28 09:38] LABS: INTERNATIONAL NORMALIZED RATIO 1.31 (0.93-1.1); PROTHROMBIN TIME 13.4 Seconds (9.6-11.5)
[2017-07-28 12:46] VITALS: BP 116/77
[2017-07-28] MEDS: HEPARIN 5,000 UNITS/ML, 1ML IV PRN (15:27)
[2017-07-28] MEDS ORDERED: WARFARIN 7.5 MG TABLET PO-COUM SCH (18:00)
[2017-07-28] MEDS: HEPARIN 25,000 UNITS/500ML PMX 500 ML IV PRN (19:45)
[2017-07-28 20:24] VITALS: BP 131/86
[2017-07-28] MEDS: TRAZODONE 100MG TABLET PO PRN (21:25)
[2017-07-29 01:06] VITALS: BP 112/74
[2017-07-29] MEDS: OXYcodone/APAP 5/325MG TABLET PO PRN ×5 (01:36→22:07)
[2017-07-29 05:09] LABS: INTERNATIONAL NORMALIZED RATIO 1.58 (0.93-1.1); PROTHROMBIN TIME 16.1 Seconds (9.6-11.5)
[2017-07-29] MEDS: HEPARIN 5,000 UNITS/ML, 1ML IV PRN ×2 (05:59→19:34)
[2017-07-29 08:00] VITALS: BP 135/90
[2017-07-29] MEDS: ALBUTEROL/IPRATROPIUM 2.5MG/0.5MG, 3 ML NPPB SCH ×4 (08:10→20:16)
[2017-07-29] MEDS: GABAPENTIN 300 MG CAPSULE PO SCH ×3 (08:52→20:53)
[2017-07-29] MEDS: CARVEDILOL 6.25 MG TABLET PO SCH ×2 (08:52→20:53)
[2017-07-29] MEDS: LACTULOSE 10 GM/15 ML UDC PO SCH ×2 (08:52→20:53)
[2017-07-29] MEDS: FLUTICASONE/VILANTEROL 100-25MCG/INH INH SCH (08:52)
[2017-07-29 14:30] VITALS: BP 120/79
[2017-07-29] MEDS: HEPARIN 25,000 UNITS/500ML PMX 500 ML IV PRN (16:02)
[2017-07-29] MEDS ORDERED: WARFARIN 7.5 MG TABLET PO-COUM SCH (18:00)
[2017-07-29 18:58] VITALS: BP 124/78
[2017-07-29] MEDS: TRAZODONE 100MG TABLET PO PRN (22:07)
[2017-07-30 01:05] VITALS: BP 114/78
[2017-07-30 02:19] LABS: INTERNATIONAL NORMALIZED RATIO 2.11 (0.93-1.1); PROTHROMBIN TIME 21.4 Seconds (9.6-11.5)
[2017-07-30 06:52] VITALS: BP 123/79
[2017-07-30] MEDS: ALBUTEROL/IPRATROPIUM 2.5MG/0.5MG, 3 ML NPPB SCH ×4 (07:45→20:55)
[2017-07-30] MEDS: CARVEDILOL 6.25 MG TABLET PO SCH ×2 (08:00→21:08)
[2017-07-30] MEDS: OXYcodone/APAP 5/325MG TABLET PO PRN ×3 (08:00→22:24)
[2017-07-30] MEDS: FLUTICASONE/VILANTEROL 100-25MCG/INH INH SCH (08:00)
[2017-07-30] MEDS: GABAPENTIN 300 MG CAPSULE PO SCH ×3 (08:01→21:08)
[2017-07-30] MEDS: LACTULOSE 10 GM/15 ML UDC PO SCH ×2 (08:01→21:08)
[2017-07-30] MEDS: HEPARIN 25,000 UNITS/500ML PMX 500 ML IV PRN (10:31)
[2017-07-30 12:17] VITALS: BP 116/78
[2017-07-30] MEDS ORDERED: WARFARIN 2 MG TABLET PO-COUM ONE (18:00)
[2017-07-30 20:18] VITALS: BP 145/91
[2017-07-30] MEDS: TRAZODONE 100MG TABLET PO PRN (22:24)
[2017-07-31 01:40] VITALS: BP 101/68
[2017-07-31] MEDS: OXYcodone/APAP 5/325MG TABLET PO PRN (05:14)
[2017-07-31] MEDS: HEPARIN 25,000 UNITS/500ML PMX 500 ML IV PRN (05:15)
[2017-07-31 07:30] LABS: INTERNATIONAL NORMALIZED RATIO 2.98 (0.93-1.1)
[2017-07-31 07:36] VITALS: BP 126/86
[2017-07-31] MEDS: ALBUTEROL/IPRATROPIUM 2.5MG/0.5MG, 3 ML NPPB SCH ×2 (07:36→11:00)
[2017-07-31] MEDS: GABAPENTIN 300 MG CAPSULE PO SCH (08:05)
[2017-07-31] MEDS: FLUTICASONE/VILANTEROL 100-25MCG/INH INH SCH (08:05)
[2017-07-31] MEDS: LACTULOSE 10 GM/15 ML UDC PO SCH (08:06)
[2017-07-31] MEDS: CARVEDILOL 6.25 MG TABLET PO SCH (08:06)
[2017-07-31] MEDS ORDERED: WARF2TAB PO-COUM (09:23)
[2017-07-31] MEDS ORDERED: WARFARIN 2 MG TABLET PO-COUM ONE (18:00)
== END 2017-07-31 13:51 | disposition home or self-care (01) | DRG 175 ==
LOC: ED 20:50 → EDIP 21:19 → 4WST 22:14
PROVIDERS: ADMIT Hospitalist; ATTEND Hospitalist
DX: I26.99 Other pulmonary embolism without acute cor pulmonale (principal); J96.21 Acute and chronic respiratory failure with hypoxia; E44.0 Moderate protein-calorie malnutrition; D68.59 Other primary thrombophilia; I82.421 Acute embolism and thrombosis of right iliac vein; D50.9 Iron deficiency anemia, unspecified; F17.210 Nicotine dependence, cigarettes, uncomplicated; Z99.81 Dependence on supplemental oxygen; J43.9 Emphysema, unspecified; I10 Essential (primary) hypertension; Z88.6 Allergy status to analgesic agent; Z88.8 Allergy status to other drugs, medicaments and biological substances; Z68.32 Body mass index [BMI] 32.0-32.9, adult; I25.10 Atherosclerotic heart disease of native coronary artery without angina pectoris; I25.2 Old myocardial infarction; I73.9 Peripheral vascular disease, unspecified; Z79.01 Long term (current) use of anticoagulants; Z86.711 Personal history of pulmonary embolism; Z95.5 Presence of coronary angioplasty implant and graft
CPT/HCPCS: 36415; 71045; 71275; 80048; 80053; 82728; 83540; 83550; 83735; 83880; 84100; 84484; 85025; 85045; 85520; 85610; 85730; 93005; 93306; 94640; 96374; J1644; J7620; Q9967; J2270; J7030

== ENCOUNTER 2017-09-03 20:08 | Emergency (ER) | payer MEDICAID ==
[~2017-09-03] VITALS: Ht 160 cm; Wt 65.0 kg
[~2017-09-03 20:08] MED LIST changes: +BREO; +WARF2TAB PO-COUM; +WARF4TAB65 PO; -WARF4TAB7 PO
[2017-09-03] MEDS ORDERED: ATOR20TA9 PO (20:24)
[2017-09-03] MEDS ORDERED: APIX2.5T PO (20:26)
[2017-09-03] MEDS ORDERED: SODIUM CHLORIDE FLUSH 10ML SYR IVF ONE (20:30)
[2017-09-03] MEDS ORDERED: methylPREDNISolone SOD SUCC 125 MG/2 ML IVP ONE (20:30)
[2017-09-03 20:31] LABS: BASOPHILS # (AUTO) 0.12 x10^3/uL (0-0.1); BASOPHILS % (AUTO) 1 % (0-1); EOSINOPHILS # (AUTO) 0.77 x10^3/uL (0-0.4); EOSINOPHILS % (AUTO) 5 % (1-7); LYMPHOCYTES # (AUTO) 2.15 x10^3/uL (1-3.4); LYMPHOCYTES % (AUTO) 14 % (22-44); MD NO; MEAN CORPUSCULAR HEMOGLOBIN 24.4 pg (27.5-34.5); MEAN CORPUSCULAR VOLUME 76.2 fL (81-97); MEAN PLATELET VOLUME 8.5 fL (7.4-10.4); MONOCYTES # (AUTO) 0.92 x10^3/uL (0.2-0.8); MONOCYTES % (AUTO) 6 % (2-9); NEUTROPHILS # (AUTO) 11.04 x10^3/uL (1.8-6.8); NEUTROPHILS % (AUTO) 74 % (42-75); PLATELET COUNT 447 x10^3/uL (130-400); RED CELL DISTRIBUTION WIDTH 21.1 % (9.4-14.8)
[2017-09-03 20:37] LABS: INTERNATIONAL NORMALIZED RATIO 0.9 (0.93-1.1); PROTHROMBIN TIME 9.4 Seconds (9.6-11.5)
[2017-09-03 20:41] LABS: ALANINE AMINOTRANSFERASE 27 U/L (12-78); ALBUMIN 3.5 g/dL (3.4-5.0); ANION GAP 7 mmol/L (5-15); CALCIUM 9.2 mg/dL (8.5-10.1); CHLORIDE 107 mmol/L (98-107); CREATININE 1.05 mg/dL (0.7-1.3)
[2017-09-03 20:45] LABS: ALKALINE PHOSPHATASE 96 U/L (45-117); BILIRUBIN,TOTAL 0.1 mg/dL (0.2-1.0); TOTAL PROTEIN 7.1 g/dL (6.4-8.2); TROPONIN I < 0.015 ng/mL (0.000-0.045)
[2017-09-03] MEDS ORDERED: methylPREDNISolone SOD SUCC 125 MG/2 ML ONE (20:45)
[2017-09-03] MEDS ORDERED: ALBUTEROL/IPRATROPIUM 2.5MG/0.5MG, 3 ML NPPB ONE (21:00)
[2017-09-03 21:37] VITALS: BP 115/76
== END 2017-09-03 21:39 | disposition home or self-care (01) ==
LOC: ED 20:59
DX: J44.1 Chronic obstructive pulmonary disease with (acute) exacerbation (principal); G89.29 Other chronic pain; I25.2 Old myocardial infarction; I25.10 Atherosclerotic heart disease of native coronary artery without angina pectoris; G43.909 Migraine, unspecified, not intractable, without status migrainosus; F17.200 Nicotine dependence, unspecified, uncomplicated; I11.9 Hypertensive heart disease without heart failure; Z86.711 Personal history of pulmonary embolism; Z86.718 Personal history of other venous thrombosis and embolism
CPT/HCPCS: 36415; 71045; 80053; 84484; 85025; 85610; 85730; 87040; 93005; 94640; 96374; 99285; J2930; J7620

== ENCOUNTER 2018-08-30 01:37 | Emergency (ER) | payer MEDICAID ==
[~2018-08-30] VITALS: Ht 160 cm; Wt 65.0 kg
[~2018-08-30 01:37] MED LIST changes: +APIX2.5T PO; -ASPI-621 PO; +ASPI81TA45 PO; +ATOR20TA37 PO; -ATOR20TA9 PO; +GABA600T7 PO; -IPRA3AMP NPPB; +IPRA3AMP30 NPPB; +TRAZ-137 PO; -TRAZ50TA18 PO; +TRAZ50TA66 PO; +WARF2.5T32 PO; -WARF2.5T73 PO
--- NOTE | 2018-08-30 01:37 | NUR ---
TASK RN:FRANKIE ANN W/ CO SOB/CP X FOUR HOURS. ON SCENE, PT 85% ON RA. HX OF COPD AND WEARS 2L BY NC AT BASELINE, PT REPORTS RUNNING OUT OF O2 TODAY. PT ARRIVES SPEAKING IN FULL SENTENCES, NAD. BREATHING TX IN PROGRESS. +CP, ONSET WHILE SITTING. RADIATES TO L ARM AND LEG. SETH REPORTS PT "KICKED OUT OF APARTMENT TODAY AND DOES NOT HAVE ACCESS TO HOME O2 CONCENTRATOR." PT REPORTS RECENT ADMIT TO [facility] W/ CO SOB AND "A BLACK LUNG MASS", BIOPSY COMPLETED AT [facility]. UNKNOWN RESULTS BP/SPO2/ECG MONITORING IN PLACE. SINUS TACH, 130'S ON MONITOR. RR 25. SPO2>90% ON 2L BY NC IMMEDIATELY FOLLOWING BREATHING TX
[2018-08-30] MEDS ORDERED: ASPIRIN 81 MG TABLET CHEW PO ONE (02:00)
[2018-08-30] MEDS ORDERED: MORPHINE SULFATE 4 MG/ML, 1ML IVPush ONE (02:00)
[2018-08-30] MEDS ORDERED: ASPIRIN 81 MG TABLET CHEW ONE (02:05)
[2018-08-30] MEDS ORDERED: MORPHINE SULFATE 4 MG/ML, 1ML ONE (02:06)
[2018-08-30 02:09] LABS: MEAN CORPUSCULAR HEMOGLOBIN 30.9 pg (27.5-34.5); MEAN CORPUSCULAR HGB CONC 33.6 g/dL (33.2-36.2); MEAN CORPUSCULAR VOLUME 91.8 fL (81-97); MEAN PLATELET VOLUME 8.3 fL (7.4-10.4); PLATELET COUNT 325 x10^3/uL (130-400); RED BLOOD COUNT 4.98 x10^6/uL (4.38-5.82)
[2018-08-30 02:21] LABS: INTERNATIONAL NORMALIZED RATIO 0.93 (0.93-1.1); PROTHROMBIN TIME 9.8 Seconds (9.6-11.5)
[2018-08-30 02:22] LABS: ALANINE AMINOTRANSFERASE 40 U/L (12-78); ANION GAP 10 mmol/L (5-15); CALCIUM 8.9 mg/dL (8.5-10.1); CHLORIDE 106 mmol/L (98-107); CREATININE 0.86 mg/dL (0.7-1.3)
[2018-08-30 02:26] LABS: ALKALINE PHOSPHATASE 96 U/L (45-117); BILIRUBIN,TOTAL 0.1 mg/dL (0.2-1.0); TOTAL PROTEIN 7.1 g/dL (6.4-8.2); TROPONIN I < 0.015 ng/mL (0.000-0.045)
[2018-08-30 02:32] LABS: MD YES
--- NOTE | 2018-08-30 02:33 | NUR ---
Break RN: Multiple people have attempted iv's, including US iv's. No success.
[2018-08-30 02:35] LABS: BAND#(MANUAL) 0.22 x10^3/uL; BANDS%(MANUAL) 1 % (0-7); EOS#(MANUAL) 0.22 x10^3/uL (0.0-0.4); EOS% (MANUAL) 1 % (1-7); LYMPH#(MANUAL) 2.65 x10^3/uL (1-3.4); LYMPHS% (MANUAL) 12 % (22-44); MONOS#(MANUAL) 1.33 x10^3/uL (0.3-2.7); MONOS% (MANUAL) 6 % (2-9); SEG#(MANUAL) 17.68 x10^3/uL (1.8-6.8); SEGS% (MANUAL) 80 % (42-75)
[2018-08-30 02:36] LABS: <PLATELET ESTIMATE> ADEQUATE; <PLT MORPHOLOGY> NORMAL PLT MORPH; ANISOCYTOSIS 1+
--- NOTE | 2018-08-30 02:46 | NUR ---
PT RESTING ON GURNEY WATCHING TV, MONITORS IN PLACE, SIDERAILS UP X2, CALL LIGHT WITHIN REACH. IRMA RN AT PT'S BEDSIDE FOR ULTRASOUND IV
--- NOTE | 2018-08-30 04:22 | NUR ---
PT RESTING ON GURNEY, C/O PAIN TO LEFT ARM REFUSED NEED FOR MEDICATION AT THIS TIME, MONITORS IN PLACE, CALL LIGHT WITHIN REACH. AWAITING CT RESULT
--- NOTE | 2018-08-30 05:24 | NUR ---
PT RESTING ON [place], PT STATED HIS HOME O2 TANK IS EMPTY, STATED HIS O2 COMPANY IS "PERFERRED". ERP UPDATED
--- NOTE | 2018-08-30 06:33 | NUR ---
PT RESTING ON GURROARING GAP, MONITORS IN PLACE, CALL LIGHT WITHIN REACH. PT NEEDS HOME O2 TANK FOR D/C. PT'S OXYGEN COMPANY IS PERFERRED AND NEEDS TO BE CALLED AT [phone] TODAY
--- NOTE | 2018-08-30 07:02 | NUR ---
received bedside report from EMILIO Ruiz. assuming pt care at this time.
--- NOTE | 2018-08-30 07:04 | NUR ---
pt sleepING ON GURNEY. NO ACUTE DISTRESS NOTED. VSS. RESPS EQUAL AND UNLABORED. WILL CONTINUE TO MONITOR.
--- NOTE | 2018-08-30 08:06 | NUR ---
PT RESTING ON GURNEY. PT EDUCATED REGARDING CALLING OXYGEN COMPANY AT [phone]. PT VERBALIZED UNDERSTANDING. NO NEEDS REQUESTED AT THIS TIME. VSS.
--- NOTE | 2018-08-30 09:02 | NUR ---
PT STATES "I CALLED THEM. I TOLD THEM TO BRING ME OXYGEN HERE." NO ACUTE DISTRESS NOTED. PT GIVEN WARM BLANKET. NO NEEDS REQUESTED AT THIS TIME.
--- NOTE | 2018-08-30 10:07 | NUR ---
CALLED [facility] AND SPOKE WITH RAVINDRA ( ) SHE STATES "I ALREADY TOLD THIS MAN THAT WE ARE NOT PROVIDING HIM WITH EQUIPMENT. THE SUPERVISOR [employer]NAN[employer] STATED HE IS HOMELESS AND HAS LOST OUR EQUIPMENT THREE TIMES. HE HAS TO FIND A NEW COMPANY."
--- NOTE | 2018-08-30 11:43 | NUR ---
LATE ENTRY FOR 1100 PT RESTING ON GURNEY. NO ACUTE DISTRESS NOTED. PT OXYGEN TURNED OFF. PT OXYGEN SAT'S 92%
--- NOTE | 2018-08-30 11:44 | NUR ---
PT RESTING ON GURHUFFMAN. VSS. NO ACUTE DISTRESS NOTED.
--- NOTE | 2018-08-30 12:58 | NUR ---
Patient/Caregiver given discharge instructions and they have confirmed that they understand the instructions. Patient ambulatory with steady gait. pt educated regarding oxygen saturations being 91-93% on room air for 3 hours. pt left with all personal belongings.
[2018-08-30 12:59] VITALS: BP 122/83
== END 2018-08-30 13:23 | disposition home or self-care (01) ==
LOC: ED 03:47
DX: J44.1 Chronic obstructive pulmonary disease with (acute) exacerbation (principal); R91.8 Other nonspecific abnormal finding of lung field; J96.11 Chronic respiratory failure with hypoxia; I10 Essential (primary) hypertension; I25.2 Old myocardial infarction; I25.10 Atherosclerotic heart disease of native coronary artery without angina pectoris; F17.210 Nicotine dependence, cigarettes, uncomplicated; Z88.0 Allergy status to penicillin; Z88.5 Allergy status to narcotic agent
CPT/HCPCS: 36415; 71045; 71250; 80053; 83880; 84484; 85025; 85610; 85730; 93005; 96374